=== PATIENT | female | born 1935 | race Caucasian/White ===

== ENCOUNTER 2018-06-22 22:02 | Inpatient (IN) | payer MEDICARE, OTHER ==
[~2018-06-22] VITALS: Ht 165.1 cm; Wt 89.8 kg
[~2018-06-22 22:02] MED LIST: ATENOLOL50 MG PO; EVISTA60 MG PO; MONUROL3 GM PO; MULTIVITAMINS1 EAC6; PLAVIX75 MG PO; PRILOSEC20 MG; RESTORIL15 MG PO; SYNTHROID125 MCG PO; TRIAMTERENE-HCTZ1 EA PO; ULTRAM50 MG PO
--- OUTSIDE RECORDS SUMMARY | 2018-06-22 22:04 | XMS REPORT | Clinical Summary ---
Author Author CARLA [facility] Address Unknown Phone Unavailable Care Team Providers Care Lab Support Technician Name Role Phone Eder Tian MD PCP Allergies Comments Active Allergy Reactions Severity Noted Date Meperidine Nausea And Medium 12/24/2015 Vomiting Penicillins Rash Low 12/24/2015 Medications End Date Status Medication Sig Dispensed Refills Start Date Active omeprazole (PRILOSEC) 20 Take 20 mg by 0 MG capsule mouth daily. Active levothyroxine (SYNTHROID, Take 125 mcg 0 LEVOTHROID) 125 MCG by mouth tablet Every morning on an empty stomach. Active Missing or Non-Formulary 1 tablet 0 Medication daily Maxide 75/50 mg . Active raloxifene (EVISTA) 60 mg Take 60 mg by 0 tablet mouth daily. Active aspirin 81 MG EC tablet Take 81 mg by 0 mouth daily. Active multivitamin with Take 1 tablet 0 minerals tablet by mouth daily. Active calcium carbonate 1250 MG Take 1,250 mg 0 capsule by mouth 2 (two) times daily with breakfast and dinner . Active temazepam (RESTORIL) 15 Take 15 mg by 0 mg capsule mouth 2-3 times per week . Active traMADol (ULTRAM) 50 mg Take 50 mg by 0 tablet mouth once in evening Seldom . Active Problems Problem Noted Date RBBB 12/31/2015 Severe aortic stenosis 12/25/2015 Coronary artery disease involving [place] coronary artery of [place] heart 12/25/2015 without angina pectoris Obesity (BMI 30.0-34.9) 12/25/2015 GERD (gastroesophageal reflux disease) 12/25/2015 Hypothyroid 12/25/2015 Chronic diastolic CHF (congestive heart failure) 12/25/2015 Immunizations Name Dates Previously Given Next Due Pneumococcal 01/02/2016 Polysaccharide (Pneumovax) Family History Medical History Relation Name Comments Cancer Father Heart disease Mother Cancer Sister Atrial fibrillation Sister Valvular heart disease Sister Relation Name Status Comments Father Mother Sister Sister Social History Date Tobacco Use Types Packs/Day Years Used Never Smoker Smokeless Tobacco: Never Used Alcohol Use Drinks/Week oz/Week Comments No Sex Assigned at Date Recorded Not on file Industry Job Start Date Occupation Not on file Not on file Not on file Travel End Travel History Travel Start No recent travel history available. Last Filed Vital Signs Not on file Plan of Treatment Health Maintenance Due Date Last Done Comments INFLUENZA VACCINE 01/03/2018 Implants Device Identifier Shelf Expiration Date Model / Serial / Lot Implanted Type Area Manufactur er 10/06/2016 [id number] / [id number] / Tiss Live Vlv Hrt Tammi 23mm Valves N/A: Aorta CARMEN [id number] - [id number] LIFESCI Implanted: Qty: 1 on 01/01/2016 by Tulio Garcia MD Results Not on fileafter 06/21/2017 Insurance Payer Benefit Subscriber ID Type Phone Address Plan / Group MEDICARE MEDICARE A xxxxxxxxxx Medicare B AETNA - MGD CARE AETNA HMO xxxxxxxxxx HMO/POS POS QPOS Advance Directives For more information, please contact: [facility] [address] [place] [id number] Date Inactivated Comments Code Status Date Activated 01/02/2016 7:22 PM Full Code 01/01/2016 9:39 AM This code status was determined by: Patient
--- OUTSIDE RECORDS SUMMARY | 2018-06-22 22:04 | XMS REPORT ---
Author Author [facility] Address Unknown Phone Unavailable Care Team Providers Care Manager Environmental Health And Safety Name Role Phone Unavailable Unavailable Payers Payer Name Policy Type Policy Number Effective Date Expiration Date Problems This patient has no known problems. Allergies, Adverse Reactions, Alerts Allergy Name Allergy Type Status Severity Reaction(s) Onset Date Inactive Date Treating Clinician Comments meperidine HCl DA Active SV 2018-06-08 00:00:00 Penicillins DA Active MO 2018-06-08 00:00:00 nitrofurantoin DA Active MO 2018-06-08 00:00:00 meperidine HCl DA Active SV 2017-08-06 00:00:00 Penicillins DA Active MO 2017-08-06 00:00:00 nitrofurantoin DA Active MO 2017-08-06 00:00:00 Medications This patient has no known medications.
[2018-06-22 23:12] LABS: BASOPHILS % 0.1 % (0.0-1.0); LYMPHOCYTES # (AUTO) 1.2 (1.0-3.2); LYMPHOCYTES % 4.3 % (18.0-39.1); MEAN CORPUSCULAR HEMOGLOBIN 28.4 pg (28-32); MEAN CORPUSCULAR HGB CONC 32.8 g/dL (31-35); MEAN CORPUSCULAR VOLUME 86.5 fL (81-99); MONOCYTES # (AUTO) 1.9 (0.2-0.8); MONOCYTES % 6.8 % (4.4-11.3); NEUTROPHILS # (AUTO) 24.2 (2.1-6.9); NEUTROPHILS % 85.7 % (38.7-80.0); PLATELET COUNT 322 x10e3/uL (140-360); RED BLOOD COUNT 2.29 x10e6/uL (3.6-5.1); RED CELL DISTRIBUTION WIDTH 13.9 % (11.7-14.4)
[2018-06-22 23:22] LABS: HEMATOCRIT 19.8 % (34.2-44.1); HEMOGLOBIN 6.5 g/dL (12.0-16.0)
[2018-06-22 23:27] LABS: ALBUMIN 2.7 g/dL (3.5-5.0); CALCIUM 8.8 mg/dL (8.4-10.2); CREATININE, SERUM 1.85 mg/dL (0.57-1.11)
[2018-06-22 23:33] LABS: CREATINE KINASE MB 3.5 ng/mL (0-5.0)
--- NOTE | 2018-06-22 23:33 | Diagnostic Imaging Report ---
Examination: Single AP view of the chest. COMPARISON: None. INDICATION: Status post fall, weakness IMPRESSION: 1. Lines and Tubes: None 2. Lungs are grossly clear. No consolidation or effusion. 3. Cardiomediastinal silhouette is normal. Pulmonary vasculature is normal. 4. No acute bony abnormalities. Partially visualized hardware in the right humeral head. Signed by: Dr. Jt Mckeon M.D. on 06/22/2018 11:30 PM
[2018-06-22] MEDS ORDERED: ACETAMINOPHEN 325 MG TAB PO STA (23:36)
--- NOTE | 2018-06-22 23:36 | Diagnostic Imaging Report ---
EXAMINATION: Bilateral Hip Films with AP pelvis CLINICAL HISTORY:Status post fall, weakness COMPARISON: None. DISCUSSION: Decreased bone mineralization, which limits evaluation of the bony structures. No acute, displaced fractures or dislocations. No lytic or blastic lesions. Mild degenerative changes in bilateral hip joints. Degenerative disc changes in the lower lumbosacral spine. Nonobstructive bowel gas pattern with moderate amount of retained stool. Calcified injection granuloma in right gluteal region. Pelvic phleboliths. Soft tissues are grossly unremarkable. IMPRESSION: 1. Decreased bone mineralization, which limits evaluation of the bony structures. No acute, displaced fracture or dislocation, within the limitations of the study. Signed by: Dr. Jt Mckeon M.D. on 06/22/2018 11:33 PM
[2018-06-22] MEDS ORDERED: FUROSEMIDE INJ 10 MG/ML 2 ML VIAL IV PRN (23:45)
[2018-06-22] MEDS ORDERED: SODIUM CHLORIDE 0.9% 250ML 250 ML IV ONE (23:45)
[2018-06-22] MEDS ORDERED: FAMOTIDINE 20 MG/2 ML VIAL IV ONE (23:45)
[2018-06-22] MEDS ORDERED: DIPHENHYDRAMINE HCL INJ 50 MG/ML VIAL IV ONE (23:45)
[2018-06-22] MEDS ORDERED: DEXAMETHASONE SOD PHOS 10 MG/1 ML VIAL IV ONE (23:45)
[2018-06-22] MEDS ORDERED: PHYTONADIONE 10 MG/ML AMP IV ONE (23:45)
--- NOTE | 2018-06-22 23:49 | Diagnostic Imaging Report ---
Exam: Right Knee Series. History: Status post fall, right knee pain and swelling Comparison: None. Findings: 3 views of the right knee. There is decreased bone mineralization, which limits evaluation of the bony structure. . Post right total knee replacement with intact femoral and tibial components, without evidence of hardware failure or loosening. Satisfactory alignment. No acute, displaced fracture or dislocation. No abnormal soft tissue calcification or mass. No suprapatellar effusion. Impression: 1. Decreased mineralization, which limits evaluation of the bony structures. Status post right total knee replacement with intact hardware. No acute, displaced fracture or dislocation. Signed by: Dr. Jt Mckeon M.D. on 06/22/2018 11:46 PM
[2018-06-23] VITALS (20 sets, daily range): BP systolic 85–145; BP diastolic 31–107
[2018-06-23 01:35] LABS: PROTHROMBIN TIME > 120.0 seconds (11.9-14.5)
[2018-06-23 01:36] LABS: INR > 5.1
[2018-06-23] MEDS ORDERED: DIATRIZOATE MEGL/DIATRIZOA SOD 30 ML BTL PO ONE (02:51)
[2018-06-23] MEDS ORDERED: CEFEPIME 1GM/NS 0.9% 50 ML 50 ML IV ONE (03:15)
[2018-06-23] MEDS ORDERED: VANCOMYCIN 1GM/NS 250 ML 250 ML IV ONE (03:15)
[2018-06-23] MEDS ORDERED: METOPROLOL SUCC25 MG PO (03:20)
[2018-06-23] MEDS ORDERED: POTASSIUM CHLOR8 ME1 PO (03:20)
[2018-06-23] MEDS ORDERED: PREDNISONE20 MG PO (03:20)
[2018-06-23] MEDS ORDERED: WARFARIN SODIUM5 MG PO (03:20)
[2018-06-23] MEDS ORDERED: CEPHALEXIN500 MG PO (03:20)
[2018-06-23] MEDS ORDERED: MELOXICAM7.5 MG PO (03:20)
[2018-06-23] MEDS ORDERED: MONTELUKAST SOD10 MG PO (03:20)
[2018-06-23] MEDS ORDERED: SULFAMETHOXAZO1 EAC1 PO (03:20)
[2018-06-23 03:43] LABS: BILIRUBIN,URINE NEGATIVE (NEGATIVE); CLARITY,URINE SL CLOUDY (CLEAR); COLOR,URINE YELLOW (YELLOW); KETONES,URINE NEGATIVE (NEGATIVE); LEUKOCYTE ESTERASE ,URINE NEGATIVE (NEGATIVE); NITRITE,URINE NEGATIVE (NEGATIVE); PROTEIN,URINE DIPSTICK NEGATIVE (NEGATIVE); URINE UROBILINOGEN 0.2 mg/dL (0.2 - 1)
[2018-06-23 03:52] LABS: BACTERIA,URINE FEW /HPF; EPITHELIAL CELLS,URINE MODERATE /LPF; RBC,URINE 0-5 /HPF (0-5); WBC,URINE (MAN) 0-5 /HPF (0-5)
[2018-06-23] MEDS ORDERED: SODIUM CHLORIDE 0.9% 250ML 250 ML ONE ×2 (04:03→21:17)
[2018-06-23 05:04] LABS: EOSINOPHILS % 0.1 % (0.0-6.0); LYMPHOCYTES # (AUTO) 0.9 (1.0-3.2); LYMPHOCYTES % 3.9 % (18.0-39.1); MEAN CORPUSCULAR HEMOGLOBIN 27.5 pg (28-32); MEAN CORPUSCULAR HGB CONC 31.8 g/dL (31-35); MEAN CORPUSCULAR VOLUME 86.3 fL (81-99); MONOCYTES % 4.4 % (4.4-11.3); NEUTROPHILS # (AUTO) 19.3 (2.1-6.9); NEUTROPHILS % 89.5 % (38.7-80.0); PLATELET COUNT 240 x10e3/uL (140-360); RED BLOOD COUNT 1.82 x10e6/uL (3.6-5.1); RED CELL DISTRIBUTION WIDTH 13.8 % (11.7-14.4)
--- OUTSIDE RECORDS SUMMARY | 2018-06-23 05:10 | XMS REPORT | Clinical Summary ---
Author Author CARLA [facility] Address Unknown Phone Unavailable Care Team Providers Care Research Environmental Scientist Name Role Phone Eder Tian MD PCP [...] aortic stenosis 12/25/2015 Coronary artery disease involving [place] coronary artery of [place] heart 12/25/2015 without angina pectoris Obesity (BMI [...] Lot Implanted Type Area Manufactur er 10/06/2016 [id number] / [id number] / Tiss Live Vlv Hrt Tammi 23mm Valves N/A: Aorta CARMEN [id number] - [id number] LIFESCI Implanted: Qty: 1 on 01/01/2016 by Tulio Garcia MD Results Not on fileafter 06/22/2017 Insurance Payer Benefit Subscriber ID Type Phone Address Plan / Group MEDICARE MEDICARE A xxxxxxxxxx Medicare B AETNA - [place]GD CARE AETNA HMO xxxxxxxxxx HMO/POS POS QPOS Advance Directives For more information, please contact: [facility] [address] [place] [id number] Date Inactivated Comments Code Status Date Activated 01/02/2016 7:22 PM Full Code 01/01/2016 9:39 AM This code status was determined by: Patient
[2018-06-23 05:17] LABS: INR 1.93; PROTHROMBIN TIME 22.7 seconds (11.9-14.5)
--- NOTE | 2018-06-23 05:20 | NUR ---
patient arrived to icu at 0517, head to toe assesment done, see full initial assesment. patient has critical hgb and pale looking. however, does not appear in distress.
[2018-06-23 05:26] LABS: HEMATOCRIT 15.7 % (34.2-44.1)
[2018-06-23 05:29] LABS: CREATINE KINASE MB 2.7 ng/mL (0-5.0)
--- NOTE | 2018-06-23 05:42 | Diagnostic Imaging Report ---
History:Weakness Comparison studies: None Technique: Axial images were obtained from the skull base to the vertex. Coronal and sagittal images reconstructed from the axial data. Dose modulation, iterative reconstruction, and/or weight based adjustment of the mA/kV was utilized to reduce the radiation dose to as low as reasonably achievable. Intravenous contrast: None Findings: Scalp/skull: No abnormalities. Extra-axial spaces: No masses. No fluid collections. Brain sulci: Mildly prominent. Ventricles: Mild compensatory dilatation. No hydrocephalus. Parenchyma: No abnormal densities. No masses, hemorrhage, acute or chronic cortical vascular insults. Sellar/suprasellar region: No abnormalities. Craniocervical junction: Patent foramen magnum. No Chiari one malformation. Incidental findings: Atherosclerotic calcifications in the carotid siphons and left vertebral artery. Senile calcifications in the globes. Focal mucosal thickening in the right maxillary sinus.. Impression: No acute abnormalities. Mild age related generalized volume loss. Signed by: Dr. Emmanuel Beasley M.D. on 06/23/2018 5:39 AM
--- NOTE | 2018-06-23 05:48 | Diagnostic Imaging Report ---
EXAMINATION: CT of the abdomen and pelvis without contrast. TECHNIQUE: Spiral CT images of the abdomen and pelvis were performed from the lung bases to the lesser trochanters. No intravenous contrast was given due to decreased GFR. Oral contrast was administered.. Coronal and sagittal reformatted images were obtained. COMPARISON: None. CLINICAL HISTORY:Weakness, status post fall 3-4 days ago DISCUSSION: ABSENCE OF INTRAVENOUS CONTRAST DECREASES SENSITIVITY FOR DETECTION OF FOCAL LESIONS AND VASCULAR PATHOLOGY. ABDOMEN/PELVIS: LOWER THORAX: Small to moderate hiatal hernia. Lung bases are grossly clear. HEPATOBILIARY: No focal hepatic lesions. No intra or extrahepatic biliary ductal dilation. GALLBLADDER: Absent SPLEEN: No splenomegaly. PANCREAS: No focal masses or ductal dilatation. ADRENALS: No adrenal nodules. KIDNEYS/URETERS: No hydronephrosis, stones, or solid mass lesions. Bilateral cortical thinning. 1.6 cm fluid density lesion in the lateral interpolar left kidney, consistent with a simple cyst. PELVIC ORGANS/BLADDER: Bladder is unremarkable. The uterus is absent. No adnexal masses. PERITONEUM/RETROPERITONEUM: No free air or fluid. No fluid collections. LYMPH NODES: No intra-abdominal,retroperitoneal, pelvic or inguinal lymphadenopathy. VESSELS: Atherosclerotic calcification of the abdominal aorta and iliac vessels. GI TRACT: No bowel dilation or evidence of obstruction. No pericolonic inflammatory changes. Distal descending and sigmoid colon diverticulosis, without diverticulitis. BONES AND SOFT TISSUES: Generalized osteopenia. Multilevel degenerative disc changes in the lower thoracic and lumbosacral spine. Mild grade 1 anterolisthesis of L4 on L5. Facet hypertrophy L4-L5 and L5-S1. No acute, displaced fracture or dislocation. Subcutaneous fat stranding in the right gluteal region, which may reflect a contusion in the setting of trauma. IMPRESSION: 1. No evidence of bony or solid organ injury. 2.Subcutaneous fat stranding in the right gluteal region, which may reflect a contusion in the setting of trauma. No fluid collections in the visualized portions. Signed by: Dr. Jt Mckeon M.D. on 06/23/2018 5:45 AM
--- NOTE | 2018-06-23 05:48 | Diagnostic Imaging Report ---
History: fall Comparison studies: None Technique: Axial images were obtained through the cervical region.. Coronal and sagittal images reconstructed from the axial data. Dose modulation, iterative reconstruction, and/or weight based adjustment of the mA/kV was utilized to reduce the radiation dose to as low as reasonably achievable. Intravenous contrast: None Findings: Fractures: None. Soft tissues: No gross abnormalities. Atlantoaxial articulation: Mild degenerative changes Alignment: Slight reversal of the usual lordosis centered at C4-5.. 2 mm degenerative anterolisthesis of C3 on C4 and C4 on C5. Mild curvature towards the left. Cervicomedullary junction: No abnormalities. The foramen magnum is patent. Vertebrae: Mildly demineralized. No infection or neoplasm. Degenerative changes: Mildly degenerated discs from C3 to C5, moderate from C5 through T1. Moderate facet arthrosis on the right from C2 through C7 Foraminal stenosis, mild right at C2-3, moderate right at C3-4 and C5-6, mild at C7-T1 due to facet and uncovertebral arthrosis. Patent spinal canal. IMPRESSION: 1. No acute abnormalities. 2. Cannot adequately evaluate for ligament, spinal cord and or vascular abnormalities. 3. Degenerative changes as described Signed by: Dr. Emmanuel Beasley M.D. on 06/23/2018 5:45 AM
--- NOTE | 2018-06-23 05:58 | Diagnostic Imaging Report ---
EXAMINATION: CT of right lower extremity, without contrast. TECHNIQUE: Axial spiral CT images of the right lower extremity were performed from the hip to the proximal tibia. No intravenous contrast was administered. Coronal and sagittal reformatted images in bone and soft tissue windows were obtained. CLINICAL HISTORY: Status post fall, suspected hematoma COMPARISON: None. FINDINGS: Exam limited by beam hardening artifact from total right knee prosthesis. No acute, displaced fracture or dislocation. No lytic or blastic lesions. Status post right total hip knee replacement, with femoral and tibial components in satisfactory position. Hardware is intact. Mild degenerative changes right hip joint. Subcutaneous soft tissue stranding extending from the right gluteal region along the lateral aspect of the thigh to just the level of the mid femur (for example series 2, image 21). Mild subcutaneous stranding is also noted in the posterior aspect of the thigh (for example series 2, image 69). An approximately 2.8 x 1.1 cm area of subcutaneous tissue anterior to the joint space with overlying skin thickening (series 2, image 99) has a measured density of 40-45 HU and may represent a small hematoma. No well-defined fluid collections. Atherosclerotic calcification of the femoral and popliteal arteries. IMPRESSION: 1. 2.8 cm area of subcutaneous tissue anterior to the knee joint space with overlying skin thickening and mild hyperdensity may represent a small subcutaneous hematoma. No well-defined fluid collections. 2. No acute, displaced fracture or dislocation. 3. Subcutaneous soft tissue stranding from the right gluteal region to the the lateral aspect of the right thigh likely reflects a contusion. Signed by: Dr. Jt Mckeon M.D. on 06/23/2018 5:55 AM
[2018-06-23] MEDS ORDERED: PHYTONADIONE 10 MG/ML AMP SQ ONE (06:00)
[2018-06-23] MEDS ORDERED: SODIUM CHLORIDE 0.9% 250ML 250 ML IV ONE (06:00)
[2018-06-23 06:17] LABS: ANION GAP 13.1 mmol/L (8-16); CALCIUM 8.8 mg/dL (8.4-10.2); CREATININE, SERUM 1.8 mg/dL (0.57-1.11); POTASSIUM 4.1 mmol/L (3.5-5.1)
[2018-06-23] MEDS ORDERED: FUROSEMIDE INJ 10 MG/ML 4 ML VIAL ONE (06:58)
--- NOTE | 2018-06-23 07:06 | NUR ---
report given in full to adrienne browning, blood prbc second unit is infusing now
[2018-06-23] MEDS ORDERED: FAMOTIDINE 20 MG/2 ML VIAL IV PRN ×2 (07:15→11:00)
[2018-06-23] MEDS ORDERED: DEXAMETHASONE SOD PHOS 10 MG/1 ML VIAL IV PRN ×2 (07:15→11:00)
[2018-06-23] MEDS ORDERED: DIPHENHYDRAMINE HCL INJ 50 MG/ML VIAL IV PRN ×2 (07:15→11:00)
[2018-06-23] MEDS ORDERED: ACETAMINOPHEN 325 MG TAB PO PRN (07:30)
--- NOTE | 2018-06-23 07:52 | NUR ---
Consult called to Dr Del Rio. Consult called to Dr Luz Elena Hernandez.
--- NOTE | 2018-06-23 08:00 | NUR ---
Consult called to Dr Boyd.
[2018-06-23 08:01] LABS: LYMPHOCYTES % (MANUAL) 2 % (19-48); METAMYELOCYTES % (MANUAL) 2 % (0-0); MONOCYTES % (MANUAL) 4 % (3.4-9.0); MYELOCYTES % (MANUAL) 1 % (0-0); NEUTROPHILS % (MANUAL) 91 % (40-74)
[2018-06-23 08:02] LABS: ANISOCYTOSIS SLIGHT; HYPOCHROMASIA MARKED; PLATELET ESTIMATE ADEQUATE; PLATELET MORPHOLOGY COMMENT NORMAL; RBC MORPHOLOGY COMMENT NORMAL
--- NOTE | 2018-06-23 09:47 | Diagnostic Imaging Report ---
Examination: Single AP view of the chest. COMPARISON: 06/22/2018 INDICATION: Central line placement DISCUSSION: Interval placement of a right internal jugular central venous catheter. The tip projects over the low superior vena cava. Lungs remain well-inflated and without consolidation, pleural effusion, or pneumothorax. Stable cardiomediastinal contour. Aortic valve prosthesis. No acute osseous abnormality. Bilateral proximal humeral surgical hardware. IMPRESSION: Right internal jugular central venous catheter tip lies in the low superior vena cava. No pneumothorax. Signed by: Dr. Darnell Duke M.D. on 06/23/2018 9:43 AM
--- NOTE | 2018-06-23 10:03 | Diagnostic Imaging Report ---
Date and Time: 06/23/2018 Procedure: Ultrasound-guided central venous catheter placement wrapper operator: Dr. Duke Pre-operative diagnosis: Sepsis, anemia Post-operative diagnosis: Sepsis, anemia Conscious Sedation: None Additional Medications: Lidocaine 1% for local anesthesia Estimated blood loss: Minimal Blood products administered: Packed red blood cell transfusion ongoing per ICU team. Specimens: None Implants: 7 [place] 16 cm triple-lumen central venous catheter. Condition at completion: Stable Disposition: ICU DISCUSSION: Informed consent was obtained and documented in the medical record after discussion of risks and benefits. The patient was placed in the supine position on the hospital bed. Preliminary sonographic evaluation confirmed patency of the right internal jugular vein, evidenced by compressibility. The right neck was prepped and draped in the standard sterile fashion. 1% lidocaine was infiltrated into the skin and subcutaneous tissues for local anesthesia. Then under continuous sonographic guidance, an 18-gauge singlewall needle was used to access the right internal jugular vein. A permanent sonographic image was stored in the medical record. A 0.0 3 5-in. wire was advanced centrally with continuous cardiac rhythm monitoring. The needle was removed over the wire and the tract was dilated. Then a 7 [place], 16 cm triple-lumen central venous catheter was advanced over the wire to a depth of 15 cm. The wire was removed. Each lumen showed adequate bidirectional flow and was flushed with sterile saline. The catheter was secured to the skin with monofilament nylon suture and a sterile dressing was applied. The patient tolerated the procedure well without immediate complication. FINDINGS: Patent right internal jugular vein. IMPRESSION: Successful placement of a right internal jugular central venous catheter under sonographic guidance, without immediate complication. Portable chest radiograph will be obtained to confirm line positioning prior to use. Signed by: Dr. Darnell Duke M.D. on 06/23/2018 10:00 AM
--- NOTE | 2018-06-23 10:03 | Diagnostic Imaging Report ---
Date and Time: 06/23/2018 Procedure: Ultrasound-guided central venous catheter placement projector operator: Dr. Duke Pre-operative diagnosis: Sepsis, anemia Post-operative diagnosis: Sepsis, anemia Conscious Sedation: None Additional Medications: Lidocaine 1% for local anesthesia Estimated blood loss: Minimal Blood products administered: Packed red blood cell transfusion ongoing per ICU team. Specimens: None Implants: 7 [place] 16 cm triple-lumen central venous catheter. Condition at completion: Stable Disposition: ICU DISCUSSION: Informed consent was obtained and documented in the medical record after discussion of risks and benefits. The patient was placed in the supine position on the hospital bed. Preliminary sonographic evaluation confirmed patency of the right internal jugular vein, evidenced by compressibility. The right neck was prepped and draped in the standard sterile fashion. 1% lidocaine was infiltrated into the skin and subcutaneous tissues for local anesthesia. Then under continuous sonographic guidance, an 18-gauge singlewall needle was used to access the right internal jugular vein. A permanent sonographic image was stored in the medical record. A 0.0 3 5-in. wire was advanced centrally with continuous cardiac rhythm monitoring. The needle was removed over the wire and the tract was dilated. Then a 7 [place], 16 cm triple-lumen central venous catheter was advanced over the wire to a depth of 15 cm. The wire was removed. Each lumen showed adequate bidirectional flow and was flushed with sterile saline. The catheter was secured to the skin with monofilament nylon suture and a sterile dressing was applied. The patient tolerated the procedure well without immediate complication. FINDINGS: Patent right internal jugular vein. IMPRESSION: Successful placement of a right internal jugular central venous catheter under sonographic guidance, without immediate complication. Portable chest radiograph will be obtained to confirm line positioning prior to use. Signed by: Dr. Darnell Duke M.D. on 06/23/2018 10:00 AM
--- NOTE | 2018-06-23 10:26 | History and Physical ---
REASON FOR ADMISSION: The patient comes here feeling weak and tired. HISTORY OF PRESENTING ILLNESS: Ms. Miguelina Clinton, who recently came to the office with upper respiratory symptoms, was given Keflex 500 mg twice a day, was in her usual state of health until yesterday, the patient started to have feeling of weakness and also the patient noted that her area of left knee started to have increased erythema and bleeding on the knee, and the patient came into the emergency room feeling weak, was found to have anemia and warfarin toxicity. The patient is admitted for anemia, septicemia, warfarin toxicity. PAST MEDICAL HISTORY: History of hypertension, history of hyperlipidemia, history of atrial fibrillation which was recently diagnosed and was started on warfarin about one month ago by . PAST SURGICAL HISTORY: Includes history of left and right rotator cuff surgery, right knee replacement, cholecystectomy, and hysterectomy. MEDICATIONS: Includes cephalexin 500 mg, meloxicam 7.5 mg daily, metoprolol 25 mg ER, montelukast 10 mg, potassium chloride 80 mEq, prednisone 10 mg twice a day, sulfamethoxazole, which has been stopped, temazepam, Dyazide, and warfarin 5 mg. REVIEW OF SYSTEMS: Negative for chest pain. Positive for short shortness of breath. No nausea, vomiting, or diarrhea. Positive for fatigue. Positive for increased pain and tenderness status post fall and also history of ecchymosis on the knee and also on the upper chin area status post fall. PHYSICAL EXAMINATION: VITAL SIGNS: Temperature is 98.6. Initially, when she came in, her pulse was 120 with a blood pressure of 121/84, it did go down to 89/61. SKIN: The patient does have small ecchymosis in the chest wall area and also below the neck area. CVS: S1, S2, irregular. ABDOMEN: Nontender and nondistended. EXTREMITIES: Positive for erythema, tenderness and also swelling in the knee area. Surgical scar for the knee is present. LABORATORY VALUES: White count was 28,000 when she came in; hemoglobin was 6.5 and hematocrit of 19.8, dropped to 5.0 and 15.7; neutrophil count was 85.7 and right now is 89.5. Coags; INR is above 5, PT at 120, repeat after 2 FFPs is 22.7 and INR of 1.93. Urine shows moderate epithelial cells, negative leukocyte esterase, and negative nitrites. IMAGING STUDIES: Knee x-ray shows decreased mineralization, no acute displaced fracture or dislocation. Hip x-ray shows decreased bone mineralization, no fractures also. Brain CT was done to rule out any bleeds, no acute abnormalities, and age-related changes seen. Abdominal CT shows no evidence of bony or solid organ injury, subcutaneous fat stranding in the right gluteal area, which may reflect contusion in setting of trauma. Lower extremity CT shows 2.8 cm area of subcutaneous tissue anterior to knee space, subcutaneous soft tissue stranding again noted in the gluteal area. Cervical spine shows no acute abnormalities. ASSESSMENT: 1. Coumadin toxicity. 2. Shock secondary to probable volume status and also possibly from septicemia. PLAN: Plan is to reverse her INR with vitamin K and also with FFPs, which has been done. The patient's blood pressure is very labile at this point in time with the blood pressure dropping, we will go ahead and put a central line to assess volume status and also to replete volume if needed immediately. One unit of PRBC has been transfused, 2 units of FFP have been transfused, we have 2 more units on hold to be transfused to bring up volume. Consult with Dr. Boyd has been done. Consult with Dr. Del Rio is done for septicemia and also with Dr. Hernandez in case a DIAMOND is required for further evaluation of septicemia. At this time, the patient is looking stable, but we will continue with central line just in case we need it. Antibiotics have been started. White count has dropped. The patient will be kept in the ICU for close monitoring. Further recommendation and clinical course, we will continue to monitor the patient along with consultants. MD MELINA BiswasJ/MODL /[id number]
[2018-06-23] MEDS ORDERED: FUROSEMIDE INJ 10 MG/ML 2 ML VIAL IV PRN (11:00)
[2018-06-23 14:10] LABS: HEMATOCRIT 29.9 % (34.2-44.1); HEMOGLOBIN 10.3 g/dL (12.0-16.0)
--- NOTE | 2018-06-23 17:53 | Consultation ---
DATE OF CONSULTATION: 06/23/2018 Cardiac Consultation REASON FOR CONSULTATION: Atrial fibrillation, TAVR, hypotension, shock status, severe anemia, hypercoagulability, and warfarin toxicity. HISTORY: An 83-year-old lady, who is known with longstanding history of hypertension, aortic stenosis, hypothyroidism, and elevated fasting blood sugar. Her other problem is repeated urinary tract infection. Despite the patient having bladder suspension surgery, she does have frequent UTIs. She has chronic renal insufficiency, which is mild to moderate. She is followed by Dr. Tian. Approximately two years ago, the patient had TAVR done in [facility]. She did well cardiac pelaez. Cardiac catheterization at that time showed no coronary artery disease. Months ago or more, she was diagnosed with atrial fibrillation by her passenger solicitor in [facility]. She was started on warfarin 5 mg a day. She also had recent upper respiratory tract infection and UTI. She was given prednisone and antibiotics. The patient was doing well; however, she usually walks with precaution, she does have tendency to fall. The patient felt dizzy, weak, she sustained a fall, and she was very weak. She was brought to this institution. Her hemoglobin was at 5, hematocrit at 15.7, BUN of 45, and creatinine of 1.8. She does have leukocytosis with white blood cell count of 21,000. She had several bruises. She was in atrial fibrillation. The patient was seen by Hematology. She was given fresh frozen plasma and blood product. Cardiac consultation was obtained. I visited the patient, who is very weak. She is feeling very debilitated. She is getting weaker and weaker until she passed out. She does have easy fatigability and shortness of breath on minimal activity. She does have postural hypotension like symptoms. She did not pass out, but she definitely sustained a fall. There is no syncope prior to this fall. There are no anginal symptoms. REVIEW OF SYSTEMS: GENERAL: Weakness, debility, and failure to thrive. HEENT: Blurry vision. PULMONARY AND CARDIAC: As per acute illness, mainly shortness of breath on exertion and easy fatigability, etc., as described above. GI: No hematemesis. No melena. : Increased frequency of urination, repeated urinary tract infection. She did not have any hematuria. NEUROLOGIC: No localized weakness. However, she is very weak. HEMATOLOGY: Easy bruising and bleeding. ENDOCRINE: "Elevated fasting blood sugar, but no diabetes." MUSCULOSKELETAL: Aches and pains, back pain with radiculopathy and tendency to fall. PSYCHIATRIC: No depression symptoms. Other review of systems unremarkable. HOME MEDICATIONS: Include all the following: Toprol XL 25 mg a day, Dyazide 37.5/25 mg one tablet a day, potassium chloride 80 mEq a day, Singulair 10 mg a day, meloxicam 15 mg a day, warfarin 5 mg a day, fosfomycin 3 mg, prednisone, and antibiotics. ALLERGIES: MEPERIDINE, NITROFURANTOIN, AND PENICILLIN. PAST MEDICAL HISTORY: 1. TAVR in 2016. 2. Atrial fibrillation, diagnosed recently in 2019. 3. Hypertension. 4. Hypothyroidism. 5. Elevated fasting blood sugar. 6. Tendency to fall. 7. Back pain with radiculopathy. 8. Cholecystectomy. 9. Hysterectomy. 10. Appendectomy. 11. Bladder suspension surgery. 12. Several shoulder surgeries. FAMILY HISTORY: Father of lung cancer, mother of heart failure, at least one sister of liver cancer. PHYSICAL EXAMINATION: GENERAL: Elderly lady, ill, weak. VITAL SIGNS: Height of 5 feet 5 inches, weight of 193 pounds. Blood pressure 95/50, heart rate of 80 and irregularly irregular of atrial fibrillation, respiratory rate of 20, and afebrile. HEENT: Pupils are reactive. NECK: No elevation of jugular venous pulsation. No thyromegaly. CHEST: Decreased air entry with basal crackles. HEART: PMI in fifth left intercoastal space. Normal first and second heart sounds. Irregularly irregular rate of atrial fibrillation with soft ejection systolic murmur. ABDOMEN: No organomegaly. No abdominal bruises are noted. EXTREMITIES: There is big bruise over the right thigh and right hip area. Mild peripheral edema. Few bruises noted all over her body. LABORATORY DATA: Sodium of 124, potassium of 4.1, BUN of 45, creatinine of 1.8, and bicarb of 24. White blood cell count of 21.6, hemoglobin of 5, hematocrit of 15.7. INR on admission is greater than 5.1, PT greater than 120 seconds. Today, INR is 1.93. EKG showing atrial fibrillation with right bundle-branch block, nonspecific ST-T changes. IMPRESSION AND PLAN: 1. Warfarin toxicity. 2. Severe anemia and blood loss. 3. Transcatheter aortic valve replacement. 4. Atrial fibrillation. 5. Repeated urinary tract infection. 6. Back pain with radiculopathy. 7. "Arthritis.". 8. Debility. Cardiac pelaez, recommendation is to use a small patch of beta-luca with precaution, to keep her heart rate between 80 to 100. Anticoagulation is handled by Hematology Service. Blood products are given. The patient is acutely ill. We will follow this very sick patient with you. Case discussed with the patient's and daughter who are at bedside. Their questions are answered. Lengthy visit in ICU for more than 60 minutes. MD ESTHER Dia/MODL /[id number]
[2018-06-23] MEDS ORDERED: CEFTRIAXONE SOD 1 GM/NS 50 ML 50 ML IV SCH (18:00)
--- NOTE | 2018-06-23 18:35 | NUR ---
Patient remains free of acute distress after TOTAL of 4 units PRBCs and 2 units FFP. H& H and VS stable.
--- NOTE | 2018-06-23 21:03 | Progress Note ---
DATE: CONTINUATION: REASON FOR CONSULTATION: Sepsis with leukocytosis and elevated lactic acid. She fell at the office as mentioned above with injuring her knee and body, but when she came to emergency room she was found to be anemic, but it was noted her white count was elevated, chest CAT scan, several x-rays. Her white count showed a WBC of 21. Currently, the patient is in intensive care unit, but she looks really good. REVIEW OF SYSTEMS: HEENT: Negative. PULMONARY: Negative. CARDIAC: Negative. GI: Negative. : Negative. IMPRESSION AND PLAN: 1. Leukocytosis with lactic acidosis. It could be sepsis. Source is unclear. It could be also just reactive. She will receive a dose of vancomycin and cefepime. I will continue with Rocephin 1 g daily. If her blood cultures come back negative and if she is clinically stable, can discontinue. Await blood cultures, urine cultures. Recheck CBC. Recheck chem panel. 2. Anemia. 3. Coumadin toxicity. 4. Status post trauma after a fall. 5. History of recent urinary tract infection, history of recent upper respiratory infection, but all seem to be stable now. We will follow. MD LISETH Hugo/MARGARITO /[id number]
[2018-06-23] MEDS: CEFTRIAXONE SOD 1 GM/NS 50 ML 50 ML IV SCH (21:10)
[2018-06-24] VITALS (16 sets, daily range): BP systolic 95–120; BP diastolic 49–76
--- NOTE | 2018-06-24 00:44 | Consultation ---
DATE OF CONSULTATION: REASON FOR CONSULTATION: Sepsis. HISTORY OF PRESENT ILLNESS: This patient who is an 83-year-old white female, comes into the hospital with shortness of breath. The patient was recently in presented with shortness of breath, upper respiratory infection symptoms. She was given Keflex 500 mg twice a day. The patient started to have weakness. She has erythema in the knee, came to the Emergency Room. She was found to have significant anemia with Coumadin toxicity. She was admitted with anemia, sepsis, and Coumadin toxicity. The patient has history of hypertension, hyperlipidemia, atrial fibrillation. She was recently diagnosed and started on Coumadin a month ago, now coming with redness and swelling in the knee. The patient has history of left and right rotator cuff surgery, right knee replacement, cholecystectomy, and hysterectomy. MEDICATIONS: Recently, she was on cephalexin 500 mg p.o. b.i.d., meloxicam, metoprolol, potassium chloride, prednisone 10 mg twice a day, sulfamethoxazole, and Coumadin. The patient comes in with shortness of breath. There is no nausea, no vomiting, no diarrhea, but she also was fatigued and tired. She has ecchymosis on her knee after a fall apparently with pain. PHYSICAL EXAMINATION: GENERAL: She is currently alert, comfortable. VITAL SIGNS: Stable, afebrile. HEENT: She is not icteric. NECK: Supple. CHEST: Clear. HEART: S1, S2. No S3, S4, murmur. ABDOMEN: Soft. Bowel sounds present. No tenderness. EXTREMITIES: No edema. IMAGING: Her CAT scan and x-ray were reviewed. IMPRESSION: 1. Coumadin toxicity with bruising. The patient received fresh frozen plasma, received blood. 2. Anemia from blood loss. 3. Sepsis with acidosis, although blood cultures and urine cultures. We will put on Rocephin 1 g daily. 4. She has CT of abdomen and pelvis, showed there is no evidence of solid organ injury. We will follow with you. Hematology/Oncology was followed, was asked to see the patient. MD LISETH Hugo/MARGARITO /[id number]
[2018-06-24 05:07] LABS: BASOPHILS % 0.2 % (0.0-1.0); EOSINOPHILS # (AUTO) 0.1 (0.0-0.4); EOSINOPHILS % 0.8 % (0.0-6.0); HEMATOCRIT 28.6 % (34.2-44.1); HEMOGLOBIN 9.7 g/dL (12.0-16.0); LYMPHOCYTES # (AUTO) 1.5 (1.0-3.2); LYMPHOCYTES % 10.3 % (18.0-39.1); MEAN CORPUSCULAR HEMOGLOBIN 28.9 pg (28-32); MEAN CORPUSCULAR HGB CONC 33.9 g/dL (31-35); MEAN CORPUSCULAR VOLUME 85.1 fL (81-99); MONOCYTES # (AUTO) 1.3 (0.2-0.8); MONOCYTES % 9.4 % (4.4-11.3); NEUTROPHILS # (AUTO) 11.1 (2.1-6.9); NEUTROPHILS % 77.8 % (38.7-80.0); PLATELET COUNT 181 x10e3/uL (140-360); RED BLOOD COUNT 3.36 x10e6/uL (3.6-5.1); RED CELL DISTRIBUTION WIDTH 14.6 % (11.7-14.4)
[2018-06-24 05:18] LABS: INR 1.59; PROTHROMBIN TIME 19.6 seconds (11.9-14.5)
[2018-06-24 05:28] LABS: ALBUMIN 2.8 g/dL (3.5-5.0); ALBUMIN/GLOBULIN RATIO 1.1 (0.8-2.0); ANION GAP 9.4 mmol/L (8-16); CALCIUM 8.7 mg/dL (8.4-10.2); CREATININE, SERUM 1.58 mg/dL (0.57-1.11); POTASSIUM 3.4 mmol/L (3.5-5.1)
[2018-06-24] MEDS ORDERED: POTASSIUM CHLORIDE 20 MEQ TAB CR PO STA (06:49)
[2018-06-24] MEDS ORDERED: GUAIFENESIN 600MG/DEXTROMETHORPHAN 30MG TABSR PO PRN (07:00)
[2018-06-24] MEDS ORDERED: ONDANSETRON HCL 4 MG ORAL DISINTEGRATING TAB PO PRN (07:00)
[2018-06-24] MEDS ORDERED: MAGNESIUM SULFATE 2GM/50ML 50 ML IV ONE (07:00)
--- NOTE | 2018-06-24 07:10 | NUR ---
Patient received awake, alert and Ox4. Respirations are even and unlabored and on room air and )2 sats are 98%. Denies any pain or discomfort. Has bruising to right knee and swelling +3 and +3 swelling to left leg also.
[2018-06-24] MEDS: BENZONATATE 100 MG CAP PO PRN ×2 (09:11→09:41)
--- NOTE | 2018-06-24 10:00 | Progress Note ---
DATE: SUBJECTIVE: This patient came into the hospital with acute Coumadin toxicity, hypertension secondary to bleed, shock secondary to sepsis, and also hypovolemic shock. The patient was started on vitamin K, FFPs were given and 4 units of PRBCs have been transfused. The patient is currently asymptomatic, in good spirits. The patient has a central line. No chest pain noted. No shortness of breath. No nausea, vomiting, or diarrhea. Feeling much better. OBJECTIVE: VITAL SIGNS: Temperature is 98.5, T-max is 99.1 at 2351, blood pressure is 113/69, pulse oximetry of 98, and the patient is on 2 L of O2. HEENT: Normocephalic and atraumatic. Central line is in place. CVS: S1 and S2, irregular. ABDOMEN: Nontender. Nondistended. EXTREMITIES: No clubbing. No cyanosis. Positive for edema on the knee, and also extensive hemarthrosis and extensive edema in the lower extremity. LABORATORY DATA: The patient's laboratory values, the patient's white count is 14,000, down from 28,000. Hemoglobin of 9.7, up from 6.5 and 5.0. The patient's hematocrit is normalized to 28.6, platelet count is 181, and left shift also has gone away. Chemistries show sodium of 135, potassium of 3.4, BUN of 41, creatinine of 1.58, and magnesium of 1.6. ASSESSMENT AND PLAN: 1. Sepsis secondary to bacteremia. The patient's microbiology cultures have grown no growth yet. 2. Hypovolemic shock. The patient has been transfused 4 units of PRBCs. 3. Acute blood loss anemia. Continue with monitoring her H and H. 4. Hypertension. Restart the blood pressure medicine as needed when the blood pressure is above 130s/90s. For right now, we will keep her off blood pressure medicines. 5. Atrial fibrillation with rapid ventricular response. We will hold off on any anticoagulation given her hemarthrosis at this time. 6. Replace lytes including potassium and magnesium. Zofran will be given as needed and Tylenol as needed for pain control and also for symptom relief. Further recommendation and clinical course, we also can start with physical therapy on the knee. We will continue to monitor the patient. The patient can again be moved out of ICU to [facility]. MD KRISTA Biswas/MARGARITO /[id number]
--- NOTE | 2018-06-24 10:30 | NUR ---
Physical Therapy here at bedside to ambulate patient with walker and patient ambulated down the ceballos with walker and tolerated well. She is now sitting in chair and tolerating well with family at bedside.
--- NOTE | 2018-06-24 11:30 | NUR ---
Report called to Manuel Chan and patient will be going to Room 298.
--- NOTE | 2018-06-24 12:00 | NUR ---
Patient transferred to Room 298 via her own bed. Magnesium Sulfate 2gm IV completed. Right IJ dressing changed prior to transfer and dated and initialed. Family aware patient will be moving to room 298. Telemetry Box #19 applied and reads [id number]. Patient denies any pain or discomfort and in good spirits.
--- NOTE | 2018-06-24 12:28 | NUR ---
PATIENT ARRIVED ON THE UNIT AT 1156 PER BED FROM THE ICU. PATIENT IS IN STALE CONDITION WITH NIO S/S OF RESPIRATORY DISTRESS. PATIENT DENIES ANY PAIN. PATIENT STATES LAST BM ON 06/22/18. TELEMETRY APPLIED. BEDSIDE COMMODE PROVIDED TO PATIENT. PATIENT AWARE OF NEED FOR STOOL SPECIMEN. BED ALARM ON. CALL LIGHT IS WITHIN REACH, PATIENT INSTRUCTED TO CALL FOR ASSISTANCE NEEDED.
--- NOTE | 2018-06-24 13:22 | NUR ---
PATIENT HAD A BOWEL MOVEMENT BUT SAMPLE WAS CONTAMINATED.
--- NOTE | 2018-06-24 18:24 | NUR ---
CASE MANAGEMENT INITIAL ASSESSMENT Cardiac Nurse to bedside to discuss plan of care with patient/family. CM/SW role and care transitions discussed. Anticipated discharge plan discussed along with duration of care. CM/SW discussed patients right to make decisions in care. CM/SW work hours given. Patient lives: WITH Admit/Transfer: ER Hospital/ER visits since last admit:0 POA/Emergency contact: CHARISSE CALDWELL, , Current/Previous Home Health: REFUSES PCP/Follow-up Care: DR RUDDY IZQUIERDO Current/Previous DME: WALKER Medications (referring to index hospitalization or the first time you were in the hospital) a. Were changes made in your medications when you were in the hospital on [date of index hospitalization]? Yes No Not sure Explain: Note: If no or not sure, please skip to question d b. Did you understand the changes? Yes No Explain: c. Were you able to obtain your new medications right away? Yes No n/a SNF only Explain: d. Were you able to take your medications like the doctor wanted you to? Yes No Explain: e. Did the hospital give you an accurate, easy to understand list of medications when you left? Yes No n/a SNF only Explain: Scale of 1-10 how comfortable does patient feel with disease management in outpatient settin Other Services: LOOKING INTO HIRING A PROVIDER TO COOK FOR HER AND HER ( A FRIEND OF HER NEIGHBORS) Employment Status: RETIRED Areas of Concerns: NONE Referral Needs: REFUSES HOME HEALTH CARE Education Needs: F/U APPTS IMM/DORSEY given and signed (if applicable): IMM ON ADMIT Goal for discharge:TO GO HOME SOON POSSIBLE CM/SW left business card at the bedside with contact information. Name and number was also written on the patients whiteboard. Patient verbalized understanding of discussion. CM will follow-up with ongoing discharge and transition of care needs.
--- NOTE | 2018-06-24 19:00 | NUR ---
patient received awake, alert, lying quietly in bed. no c/o pain noted. patient repositioned for comfort. pm assessment complete. family members noted at the bedside. patient instructed to call for assistance when needed.
--- NOTE | 2018-06-24 19:08 | NUR ---
PATIENT IN STABLE CONDITION WITH NO S/S OF RESPIRATORY DISTRESS. NO PAIN VOICED. DIAPER APPLIED. BED ALARM ON. BEDSIDE COMMODE AVAILABLE NEAR BEDSIDE. FAMILY MEMBERS PRESENT IN ROOM. CALL LIGHT IS WITHIN REACH, INSTRUCTED TO CALL FOR ASSISTANCE NEEDED. BEDSIDE REPORT GIVEN TO ONCOMING NURSE.
[2018-06-24] MEDS: CEFTRIAXONE SOD 1 GM/NS 50 ML 50 ML IV SCH (21:00)
[2018-06-24] MEDS ORDERED: SODIUM CHLORIDE 0.9% 250ML 250 ML ONE (21:07)
[2018-06-25] VITALS (7 sets, daily range): BP systolic 108–149; BP diastolic 56–82
--- NOTE | 2018-06-25 | NUR ---
patient oob to bs with assistance. patient voids without difficulty. no c/o pain noted at this time.
[2018-06-25 06:20] LABS: BASOPHILS % 0.2 % (0.0-1.0); EOSINOPHILS # (AUTO) 0.4 (0.0-0.4); EOSINOPHILS % 2.9 % (0.0-6.0); HEMATOCRIT 28.8 % (34.2-44.1); HEMOGLOBIN 9.4 g/dL (12.0-16.0); LYMPHOCYTES # (AUTO) 1.5 (1.0-3.2); LYMPHOCYTES % 10.9 % (18.0-39.1); MEAN CORPUSCULAR HEMOGLOBIN 29.1 pg (28-32); MEAN CORPUSCULAR HGB CONC 32.6 g/dL (31-35); MEAN CORPUSCULAR VOLUME 89.2 fL (81-99); MONOCYTES # (AUTO) 1.1 (0.2-0.8); MONOCYTES % 7.9 % (4.4-11.3); NEUTROPHILS # (AUTO) 10.6 (2.1-6.9); NEUTROPHILS % 76.6 % (38.7-80.0); PLATELET COUNT 188 x10e3/uL (140-360); RED BLOOD COUNT 3.23 x10e6/uL (3.6-5.1); RED CELL DISTRIBUTION WIDTH 14.8 % (11.7-14.4)
[2018-06-25 06:48] LABS: ANION GAP 8.7 mmol/L (8-16); CALCIUM 8.5 mg/dL (8.4-10.2); CREATININE, SERUM 1.13 mg/dL (0.57-1.11); MAGNESIUM 1.9 MG/DL (1.3-2.1); POTASSIUM 3.7 mmol/L (3.5-5.1)
[2018-06-25 15:31] LABS: INR 1.06; PROTHROMBIN TIME 14.3 seconds (11.9-14.5)
--- NOTE | 2018-06-25 16:41 | NUR ---
PATIENT IS SITTING IN THE RECLINER AND IS IN STABLE CONDITION WITH NO S/S OF RESPIRATORY DISTRESS.
[2018-06-25] MEDS: WARFARIN SOD 2 MG TAB PO SCH (17:02)
--- NOTE | 2018-06-25 18:53 | NUR ---
PATIENT ASSISTED BACK TO BED BY AIR TUCKER'S. PATIENT IS IN STABLE CONDITION WITH NO S/S OF RESPIRATORY DISTRESS. NO PAIN VOICED. TELEMETRY APPLIED. BED ALARM ON. CALL LIGHT IS WITHIN REACH, INSTRUCTED TO CALL FOR ASSISTANCE NEEDED. BEDSIDE REPORT GIVEN TO ONCOMING NURSE.
--- NOTE | 2018-06-25 19:15 | NUR ---
patient received awake, alert, lying quietly in bed. respirations even and unlabored. patient denies pain at this time. pm assessment complete. patient instructed to call for assistance when needed.
[2018-06-25] MEDS: CEFTRIAXONE SOD 1 GM/NS 50 ML 50 ML IV SCH (20:48)
[2018-06-26] VITALS: BP 144/63
--- NOTE | 2018-06-26 00:30 | NUR ---
patient oob to [facility] with assistance. patient voids without difficulty. no bm noted at this time. patient complains of insomnia and is requesting medication to help her sleep. Dr. Kapoor notified and medication ordered.
[2018-06-26] MEDS: TEMAZEPAM 15 MG CAP PO PRN (00:41)
[2018-06-26 04:00] VITALS: BP 147/65
[2018-06-26 06:23] LABS: INR 0.98; PROTHROMBIN TIME 13.5 seconds (11.9-14.5)
[2018-06-26 08:00] VITALS: BP 132/83
--- NOTE | 2018-06-26 11:32 | NUR ---
PATIENT FINISHED USING THE BEDSIDE COMMODE (URINE) AND TRANSFERRED TO THE RECLINER PER WALKER AND STANDBY ASSISTANCE BY THE RN. PATIENT IN STABLE CONDITION WITH NO S/S OF RESPIRATORY DISTRESS.
[2018-06-26 12:00] VITALS: BP 143/67
--- NOTE | 2018-06-26 12:35 | NUR ---
DR. WALLY ROCA ON PATIENT, CONTINUE SAME DOSE OF COUMADIN.
[2018-06-26] MEDS: WARFARIN SOD 2 MG TAB PO SCH (17:08)
--- NOTE | 2018-06-26 18:44 | NUR ---
DR. CERRATO INFORMED PATIENT IS POSITIVE FOR OCCULT STOOL- NO NEW ORDERS GIVEN.
--- NOTE | 2018-06-26 18:49 | NUR ---
PATIENT IN STABLE CONDITION WITH NO S/S OF RESPIRATORY DISTRESS. PATIENT SITTING IN THE RECLINER. NO PAIN VOICED. CALL LIGHT IS WITHIN REACH, PATIENT INSTRUCTED TO CALL FOR ASSISTANCE NEEDED. BEDSIDE REPORT GIVEN TO ONCOMING NURSE.
--- NOTE | 2018-06-26 18:50 | NUR ---
patient received awake, alert, sitting up in recliner. no c/o pain noted. pm assessment complete. call vasquez placed within reach and patient instructed to call for assistance when needed.
[2018-06-26 19:30] VITALS: BP 149/88
[2018-06-26 20:00] VITALS: BP 149/88
[2018-06-26] MEDS: CEFTRIAXONE SOD 1 GM/NS 50 ML 50 ML IV SCH (20:33)
[2018-06-27] VITALS (8 sets, daily range): BP systolic 124–161; BP diastolic 58–74
--- NOTE | 2018-06-27 | NUR ---
patient ambulatory to bathroom with assistance. patient voids without difficulty. no c/o pain noted at this time.
--- NOTE | 2018-06-27 04:56 | NUR ---
am labs collected at this time from right ij tlc.
[2018-06-27 06:09] LABS: BASOPHILS % 0.3 % (0.0-1.0); EOSINOPHILS # (AUTO) 0.8 (0.0-0.4); EOSINOPHILS % 5.8 % (0.0-6.0); HEMOGLOBIN 10.2 g/dL (12.0-16.0); LYMPHOCYTES # (AUTO) 1.8 (1.0-3.2); MEAN CORPUSCULAR HEMOGLOBIN 29.5 pg (28-32); MEAN CORPUSCULAR HGB CONC 31.9 g/dL (31-35); MEAN CORPUSCULAR VOLUME 92.5 fL (81-99); MONOCYTES # (AUTO) 1.1 (0.2-0.8); MONOCYTES % 7.8 % (4.4-11.3); NEUTROPHILS # (AUTO) 10.6 (2.1-6.9); NEUTROPHILS % 72.7 % (38.7-80.0); PLATELET COUNT 220 x10e3/uL (140-360); RED BLOOD COUNT 3.46 x10e6/uL (3.6-5.1); RED CELL DISTRIBUTION WIDTH 17.1 % (11.7-14.4)
[2018-06-27 06:31] LABS: INR 1.04; PROTHROMBIN TIME 14.1 seconds (11.9-14.5)
[2018-06-27 06:45] LABS: ALANINE AMINOTRANSFERASE 21 IU/L (0-55); ALBUMIN 2.6 g/dL (3.5-5.0); ALBUMIN/GLOBULIN RATIO 0.9 (0.8-2.0); ALKALINE PHOSPHATASE 67 IU/L (40-150); ANION GAP 10.8 mmol/L (8-16); BLOOD UREA NITROGEN 24 mg/dL (7-26); BUN/CREATININE RATIO 27 (6-25); CALCIUM 8.8 mg/dL (8.4-10.2); CARBON DIOXIDE 28 mmol/L (22-29); CHLORIDE 102 mmol/L (98-107); CREATININE, SERUM 0.88 mg/dL (0.57-1.11); EST GLOMERULAR FILTRATION RATE > 60 ML/MIN (60-); GLUCOSE 94 mg/dL (74-118); POTASSIUM 3.8 mmol/L (3.5-5.1); SODIUM 137 mmol/L (136-145)
--- NOTE | 2018-06-27 07:30 | NUR ---
PT UP IN BED NO DISTRESS NOTED,DENIES PAIN.
--- NOTE | 2018-06-27 08:00 | NUR ---
ASSISTED PT UP TO CHAIR TOLERATED WELL,
--- NOTE | 2018-06-27 08:45 | NUR ---
PT UP AMBULATING IN ROOM ,TELE CALLED STATED PT HR 149 EXPLAINED PT WAS AMBULATING,ASSISTED PT BACK TO BED
--- NOTE | 2018-06-27 09:30 | NUR ---
PT HR 97 AFIB
[2018-06-27] MEDS: WARFARIN SOD 2 MG TAB PO SCH (17:35)
--- NOTE | 2018-06-27 18:35 | NUR ---
PT UP IN CHAIR NO DISTRESS NTOED ,DENNIES PAIN
--- NOTE | 2018-06-27 19:00 | NUR ---
patient received awake, alert, sitting up in recliner in room. no c/o pain noted. Dr. Tian here to see patient. new medication orders noted. pm assessment complete. call vasquez placed within reach. patient instructed to call for assistance when needed.
[2018-06-27] MEDS: FAMOTIDINE 20 MG TAB PO SCH (19:55)
[2018-06-27] MEDS: METOPROLOL SUCCINATE 25 MG TAB XL PO SCH (20:00)
[2018-06-27] MEDS: TEMAZEPAM 15 MG CAP PO PRN (23:45)
--- NOTE | 2018-06-27 23:45 | NUR ---
patient ambulatory to bathroom with walker with assistance. patient voids without difficulty. patient back to recliner to sleep per patients choice. patient medicated with restoril 30 mg po per patients request. call vasquez placed within reach. patient instructed to call for assistance when needed.
[2018-06-28] VITALS (9 sets, daily range): BP systolic 116–136; BP diastolic 55–73
--- NOTE | 2018-06-28 03:25 | Progress Note ---
DATE: SUBJECTIVE: The patient is currently in for Coumadin toxicity, sepsis. The patient is currently asymptomatic, in good spirits, participated physical therapy, walked the floor, did complain of some reflux esophagitis. MEDICATIONS: The patient's medications at this time are Lasix, guaifenesin, metoprolol, which is restarted, temazepam, warfarin at 2 mg, and also benzonatate. PHYSICAL EXAMINATION: VITAL SIGNS: Temperature is 97.7, pulse of 104, respirations 17, blood pressure is 131/60, and pulse oximeter is 96%. HEENT: Normocephalic, atraumatic. Pupils are reactive to light and accommodation. CVS: S1, S2. Regular. Tachycardic. ABDOMEN: Nontender, nondistended. EXTREMITIES: No clubbing. No cyanosis. No edema. SKIN: With ecchymosis from the fall. LABORATORY VALUES: White count is 14,000, hemoglobin of 10.2, and hematocrit of 32. Chemistry; sodium of 137, potassium 3.8, BUN of 24, and creatinine of 0.88. Coags, INR is 1.04. ASSESSMENT: 1. Sepsis. 2. Coumadin toxicity. 3. Anemia of blood loss. 4. Hypertension. 5. Atrial fibrillation with rapid ventricular rate. PLAN: Plan is to continue with current medications. Medicine list reviewed. Labs will be done tomorrow. The patient's Rocephin has been stopped. We will restart her metoprolol ER in lieu of her tachycardia. Continue monitoring the patient. INR should be therapeutic between 2 and 3. Coumadin has been reinstated and also uptitrated today. For her reflux, we will give her cimetidine at nighttime and pantoprazole in the morning. Further recommendation per clinical course. The patient will continue physical therapy. DISPOSITION: Possible discharge in 1-2 days after INR has been therapeutic. MD KRISTA Biswas/MODL /[id number]
--- NOTE | 2018-06-28 05:00 | NUR ---
am labs collected at this time and sent to lab.
[2018-06-28 06:05] LABS: BASOPHILS # (AUTO) 0.1 (0.0-0.1); BASOPHILS % 0.5 % (0.0-1.0); EOSINOPHILS # (AUTO) 0.8 (0.0-0.4); EOSINOPHILS % 6.2 % (0.0-6.0); HEMATOCRIT 31.5 % (34.2-44.1); HEMOGLOBIN 9.9 g/dL (12.0-16.0); LYMPHOCYTES # (AUTO) 1.6 (1.0-3.2); LYMPHOCYTES % 12.3 % (18.0-39.1); MEAN CORPUSCULAR HEMOGLOBIN 29.4 pg (28-32); MEAN CORPUSCULAR HGB CONC 31.4 g/dL (31-35); MEAN CORPUSCULAR VOLUME 93.5 fL (81-99); MONOCYTES # (AUTO) 1.1 (0.2-0.8); MONOCYTES % 8.8 % (4.4-11.3); NEUTROPHILS # (AUTO) 9.2 (2.1-6.9); NEUTROPHILS % 70.7 % (38.7-80.0); PLATELET COUNT 221 x10e3/uL (140-360); RED BLOOD COUNT 3.37 x10e6/uL (3.6-5.1); RED CELL DISTRIBUTION WIDTH 16.8 % (11.7-14.4)
[2018-06-28 06:26] LABS: PROTHROMBIN TIME 13.7 seconds (11.9-14.5)
--- NOTE | 2018-06-28 07:35 | NUR ---
PT UP ON SIDE OF BED ,DENIES PAIN,TELE IN PLACE -AFIB 80
[2018-06-28] MEDS: PANTOPRAZOLE SOD 40 MG TABEC PO SCH (08:35)
[2018-06-28] MEDS: METOPROLOL SUCCINATE 25 MG TAB XL PO SCH (08:35)
--- NOTE | 2018-06-28 13:32 | Progress Note ---
DATE: SUBJECTIVE: The patient is here for acute Coumadin toxicity, hypertension, and history of AFib with RVR and also with blood loss anemia. Currently asymptomatic, did start back on the metoprolol yesterday. OBJECTIVE: VITAL SIGNS: Temperature is 97.9, pulse of 84, respirations of 18, and blood pressure is 133/73. GENERAL: The patient has ecchymosis in the neck and also in the thigh area. HEENT: Normocephalic, atraumatic. CVS: S1 and S2 irregularly irregular. ABDOMEN: Nontender, nondistended. EXTREMITIES: Positive for swelling in the right thigh with edema on the right side. LABORATORY VALUES: Today's white count is down to 12,000. Chemistries, creatinine of 0.88, acute kidney injury has resolved. The patient's lytes are all normal at this time. Coags, INR is 1.00. Warfarin will be increased to 3. ASSESSMENT: 1. Sepsis. 2. Coumadin toxicity. 3. Anemia of blood loss. 4. Hypertension. 5. Atrial fibrillation with rapid ventricular response. PLAN: 1. Sepsis. The patient's antibiotic has been stopped. 2. Atrial fibrillation. Continue with metoprolol, rate has been achieved. 3. Coumadin toxicity, has resolved. The patient has been restarted on her Coumadin with a target rate of between 2 and 3 INR. 4. Physical Therapy for rehabilitation. FURTHER RECOMMENDATIONS AND CLINICAL COURSE: We will continue to monitor the patient. Possible discharge in 1 to 2 days when the INR is therapeutic between 2 and 3. MD KRISTA Biswas/MODL /[id number]
[2018-06-28] MEDS ORDERED: WARFARIN SOD 3 MG TAB PO SCH (17:00)
--- NOTE | 2018-06-28 18:50 | NUR ---
patient received awake, alert, sitting up in recliner. daughter noted at the bedside. pt denies pain at this time. pm assessment complete. patient instructed to call for assistance when needed.
[2018-06-28] MEDS: FAMOTIDINE 20 MG TAB PO SCH (20:34)
[2018-06-28] MEDS: TEMAZEPAM 15 MG CAP PO PRN (21:43)
[2018-06-29] VITALS (7 sets, daily range): BP systolic 108–125; BP diastolic 58–70
[2018-06-29 05:18] LABS: BASOPHILS # (AUTO) 0.1 (0.0-0.1); BASOPHILS % 0.4 % (0.0-1.0); EOSINOPHILS # (AUTO) 0.8 (0.0-0.4); EOSINOPHILS % 5.7 % (0.0-6.0); HEMATOCRIT 32.5 % (34.2-44.1); LYMPHOCYTES # (AUTO) 1.7 (1.0-3.2); LYMPHOCYTES % 12.2 % (18.0-39.1); MEAN CORPUSCULAR HEMOGLOBIN 28.9 pg (28-32); MEAN CORPUSCULAR HGB CONC 30.8 g/dL (31-35); MEAN CORPUSCULAR VOLUME 93.9 fL (81-99); MONOCYTES # (AUTO) 1.4 (0.2-0.8); MONOCYTES % 9.7 % (4.4-11.3); NEUTROPHILS # (AUTO) 9.9 (2.1-6.9); NEUTROPHILS % 70.2 % (38.7-80.0); PLATELET COUNT 207 x10e3/uL (140-360); RED BLOOD COUNT 3.46 x10e6/uL (3.6-5.1); RED CELL DISTRIBUTION WIDTH 16.8 % (11.7-14.4)
[2018-06-29 05:29] LABS: INR 0.98; PROTHROMBIN TIME 13.5 seconds (11.9-14.5)
--- NOTE | 2018-06-29 07:35 | NUR ---
PATIENT OUT OF BED TO RECLINING CHAIR WATCHING TV. DENIED PAIN AT THIS TIME. S/P FALL AT HOME, BRUISES ALL OVER THE BODY. CALL LIGHT AT REACH.
[2018-06-29] MEDS: PANTOPRAZOLE SOD 40 MG TABEC PO SCH (08:04)
[2018-06-29] MEDS: METOPROLOL SUCCINATE 25 MG TAB XL PO SCH (09:40)
--- NOTE | 2018-06-29 10:33 | Progress Note ---
DATE: SUBJECTIVE: The patient is here for Coumadin toxicity, status post fall, left knee hemarthrosis, and also urinary tract infection and sepsis. Currently, the patient is asymptomatic. Awaiting for INR to be elevated to between 2 and 3. The patient did get 3 mg of warfarin yesterday and we will continue monitoring the warfarin. OBJECTIVE: VITAL SIGNS: Temperature is 98.1, pulse of 86, respirations of 16, blood pressure is 125/58, pulse ox of 98%. HEENT: Normocephalic, atraumatic. NECK: With ecchymosis. CVS: S1, S2. Irregular. ABDOMEN: Nontender, nondistended. EXTREMITIES: Right lower extremity with hemarthrosis. Positive edema. Extremities otherwise normal. LABORATORY VALUES: Today's white count is 14,000, hemoglobin of 10, hematocrit of 32. Coags decreased, INR to 0.98. The patient's chemistries are all within normal limits. Bilirubin is 1.6. ASSESSMENT: 1. Sepsis. 2. Coumadin toxicity. 3. Anemia of blood loss. 4. Hypertension. 5. Atrial fibrillation with rapid ventricular response and normal response right now. 6. Debility. PLAN: 1. Continue with checking her CBCs. The patient's white count has steadily dropped and normalized. 2. Atrial fibrillation is controlled with metoprolol. 3. Coumadin toxicity, resolved with vitamin K and FFP. The patient is on Coumadin. We will bump up the warfarin to 5 mg. 4. Debility. Physical therapy with rehabilitation. The patient did walk the course of the hospital 2 times yesterday and improving. Plan is to again monitor the INR, and when INR is between 2 to 3, the patient can be discharged home safely. Further recommendations per clinical course. MD KRISTA Biswas/MODL /[id number]
--- NOTE | 2018-06-29 11:32 | NUR ---
PATIENT IN RECLINING CHAIR TALKING TO FAMILY MEMBER VISITING. CALL LIGHT AT REACH.
--- NOTE | 2018-06-29 13:12 | NUR ---
EXPLAINED THE IMM LETTER. PT AND SPOUSE VERBALIZED UNDERSTANDING. IMM LETTER WAS SIGNED. COPY TO PT AND COPY TO CHART.
--- NOTE | 2018-06-29 16:08 | NUR ---
PATIENT ASSISTED TO THE RESTROOM AND BACK TO CHAIR. CALL LIGHT AT REACH.
--- NOTE | 2018-06-29 16:50 | NUR ---
Nutrition Screen Note RD Recommendation for Physician: -Rec adding vitamin K restriction to cardiac diet as medically appropriate Plan of Care: RD following, monitoring for tolerance and adequacy Nutrition reason for involvement: LOS Primary Diagnose(s): Afib, coumadin toxicity, debility PMH: HTN, HLD, Afib Ht: 65in Wt:196.25lb BMI: 32.7kg/m2 IBW: 125lb RD Assessment: (06/29) Chart reviewed. Labs and meds reviewed. 83yo F, who was admitted for weakness. Visited pt in the room. Pt reported improvement in her appetite with 75-100% meal intake. No GI complains reported. No chewing or swallowing difficulty noted. No recent weight loss reported with UBW at 181lb. Will continue to monitor and follow. Current Diet: cardiac diet Malnutrition Evaluation (06/29) The patient does not meet criteria for a specified degree of malnutrition at this time. Will re-evaluate at follow-up as appropriate. Diet Education Needs Assessment: Diet education not indicated. Nutrition Care Level: low Signed: Fanny Kate, MS, RD, LD
[2018-06-29] MEDS ORDERED: WARFARIN SOD 3 MG TAB PO SCH (17:00)
[2018-06-29] MEDS: WARFARIN SOD 5 MG TAB PO SCH (17:13)
--- NOTE | 2018-06-29 19:42 | NUR ---
PT IS RESTING IN THE RECLINER. RESPIRATION IS EVEN AND UNLABORED, NO DISTRESS NOTED. BED IN THE LOWEST POSITION, LOCKED, AND CALL LIGHT WITHIN REACH. WILL CONTINUE TO MONITOR.
[2018-06-29] MEDS: FAMOTIDINE 20 MG TAB PO SCH (20:44)
[2018-06-29] MEDS: TEMAZEPAM 15 MG CAP PO PRN (21:47)
[2018-06-30] VITALS (8 sets, daily range): BP systolic 93–149; BP diastolic 58–80
[2018-06-30 06:34] LABS: INR 1.11; PROTHROMBIN TIME 14.8 seconds (11.9-14.5)
--- NOTE | 2018-06-30 07:13 | NUR ---
RECEIVED PATIENT RESTING IN BED. RESPIRATIONS EVEN AND UNLABORED, NO ACUTE DISTRESS NOTED. CALL LIGHT WITHIN REACH. BED IN THE LOWEST POSITION.
[2018-06-30] MEDS: METOPROLOL SUCCINATE 25 MG TAB XL PO SCH (08:21)
[2018-06-30] MEDS: PANTOPRAZOLE SOD 40 MG TABEC PO SCH (08:21)
--- NOTE | 2018-06-30 10:34 | Progress Note ---
DATE: SUBJECTIVE: The patient is here for Coumadin toxicity, anemia, blood loss, hypertension, hypercoagulable state. Currently, the patient is asymptomatic. No complaints noted. The patient is awaiting for her INR to be between 2 and 3. The patient did walk yesterday, otherwise getting stronger daily. OBJECTIVE: VITAL SIGNS: Temperature is 97.0, pulse is 66, respirations 16, blood pressure is 117/58. HEENT: Normocephalic, atraumatic. Pupils are reactive to light and accommodation. CVS: S1, S2, irregular. ABDOMEN: Nontender, nondistended. EXTREMITIES: No clubbing, no cyanosis. INTEGUMENTARY: Positive for ecchymosis, fading away. MUSCULOSKELETAL: Right-sided hemarthrosis. LABORATORY VALUES: Today's INR is 1.11. Coumadin is at 5 mg. ASSESSMENT AND PLAN: 1. Acute blood loss anemia, status post blood transfusion, status post FFP. 2. Coumadin toxicity, resolved, back on Coumadin. 3. Atrial fibrillation, continue with warfarin at 5 mg. INR to be monitored daily. 4. Hypertension, controlled and debility needs physical therapy. Further recommendations and clinical course, we will continue to monitor the patient until INR is between 2 and 3 and therapeutic. MD MELINA BiswasJ/MODL /[id number]
[2018-06-30] MEDS: WARFARIN SOD 5 MG TAB PO SCH (17:27)
--- NOTE | 2018-06-30 19:18 | NUR ---
REPORT GIVEN TO ONCOMING NURSE, PATIENT IS RESTING IN RECLINER. NO ACUTE DISTRESS NOTED. FAMILY AT BEDSIDE. CALL LIGHT WITHIN REACH. BED IN THE LOWEST POSITION.
--- NOTE | 2018-06-30 19:51 | NUR ---
PT IS SITTING IN THE RECLINER VISITING WITH FAMILY. RESPIRATION IS EVEN AND UNLABORED, NO DISTRESS NOTED. BED IN THE LOWEST POSITION, LOCKED, AND CALL LIGHT WITHIN REACH. WILL CONTINUE TO MONITOR.
[2018-06-30] MEDS: FAMOTIDINE 20 MG TAB PO SCH (22:01)
[2018-07-01] VITALS (8 sets, daily range): BP systolic 111–140; BP diastolic 52–71
--- NOTE | 2018-07-01 06:58 | NUR ---
RECEIVED PATIENT RESTING IN BED, RESPIRATIONS EVEN AND UNLABORED, NO ACUTE DISTRESS NOTED. CALL LIGHT WITHIN REACH. BED IN THE LOWEST POSITION. BED ALARM ON.
[2018-07-01 07:15] LABS: INR 1.13
[2018-07-01] MEDS: PANTOPRAZOLE SOD 40 MG TABEC PO SCH (08:29)
[2018-07-01] MEDS: METOPROLOL SUCCINATE 25 MG TAB XL PO SCH (08:30)
--- NOTE | 2018-07-01 09:49 | Progress Note ---
DATE: SUBJECTIVE: The patient is asymptomatic. No complaints today. OBJECTIVE: VITAL SIGNS: Temperature is 96.9, blood pressure is 117/52, respiration of 20. HEENT: Normocephalic. Positive for ecchymosis in the neck. CVS: S1, S2. Regular. ABDOMEN: Nontender, nondistended. EXTREMITIES: Right-sided extremity edema with hemarthrosis and decreased swelling compared to yesterday. LABORATORY VALUE: INR is still pending, yesterday was 1.11. The patient is on warfarin 5 mg. ASSESSMENT: 1. Acute blood loss anemia, status post transfusion, status post FFP. 2. Coumadin toxicity, resolved. The patient is currently back on anticoagulation for atrial fibrillation. 3. Hypertension. Continue with antihypertensive. 4. Debility. Continue physical therapy. DISPOSITION: Discharged home when the INR is between 2 and 3. Further recommendation per clinical course. MD MELINA BiswasJ/MODL /[id number]
[2018-07-01] MEDS ORDERED: FUROSEMIDE INJ 10 MG/ML 2 ML VIAL IV ONE (10:30)
[2018-07-01] MEDS: WARFARIN SOD 5 MG TAB PO SCH (17:01)
--- NOTE | 2018-07-01 19:19 | NUR ---
REPORT GIVEN TO ONCOMING NURSE. PATIENT IS SITTING UP IN RECLINER. NO ACUTE DISTRESS NOTED. CALL LIGHT WITHIN REACH.
[2018-07-01] MEDS: FAMOTIDINE 20 MG TAB PO SCH (21:32)
[2018-07-01] MEDS: TEMAZEPAM 15 MG CAP PO PRN (22:33)
[2018-07-02] VITALS (7 sets, daily range): BP systolic 102–125; BP diastolic 56–74
--- NOTE | 2018-07-02 05:10 | NUR ---
Patient brought in from the ER, patient is alert and oriented but sleeps easily. patient welcomed and offered a bed, vitals checked are normal.
[2018-07-02 07:19] LABS: BASOPHILS % 0.3 % (0.0-1.0); EOSINOPHILS # (AUTO) 0.6 (0.0-0.4); EOSINOPHILS % 4.6 % (0.0-6.0); HEMATOCRIT 36.6 % (34.2-44.1); HEMOGLOBIN 11.7 g/dL (12.0-16.0); LYMPHOCYTES % 14.6 % (18.0-39.1); MEAN CORPUSCULAR HEMOGLOBIN 30.2 pg (28-32); MEAN CORPUSCULAR VOLUME 94.6 fL (81-99); MONOCYTES # (AUTO) 0.8 (0.2-0.8); MONOCYTES % 6.3 % (4.4-11.3); NEUTROPHILS # (AUTO) 9.8 (2.1-6.9); NEUTROPHILS % 73.2 % (38.7-80.0); PLATELET COUNT 225 x10e3/uL (140-360); RED BLOOD COUNT 3.87 x10e6/uL (3.6-5.1); RED CELL DISTRIBUTION WIDTH 17.5 % (11.7-14.4)
[2018-07-02 07:29] LABS: INR 1.21; PROTHROMBIN TIME 15.9 seconds (11.9-14.5)
[2018-07-02] MEDS: PANTOPRAZOLE SOD 40 MG TABEC PO SCH (07:30)
[2018-07-02 07:38] LABS: ALBUMIN 2.9 g/dL (3.5-5.0); ALBUMIN/GLOBULIN RATIO 0.9 (0.8-2.0); ANION GAP 9.1 mmol/L (8-16); CALCIUM 9.4 mg/dL (8.4-10.2); CREATININE, SERUM 1.21 mg/dL (0.57-1.11); POTASSIUM 4.1 mmol/L (3.5-5.1)
[2018-07-02] MEDS: METOPROLOL SUCCINATE 25 MG TAB XL PO SCH (08:32)
--- NOTE | 2018-07-02 08:33 | NUR ---
Patient alert and responsive, no resp distress, OOB and ambulated in the room no distress at this time Head: Normocephalic, atraumatic Resp: no distress, [id number]%RA Cardiac: S1, S2 present, Afib but controlled, on Tele monitor and beta luca GI: Positive occult blood from 06/26, attending notified Heme: Hgb improving, s/p PRBCs transfused, on coumadin, INR goal 2-3. Will monitor
--- NOTE | 2018-07-02 08:36 | Progress Note ---
DATE: SUBJECTIVE: The patient is an 83-year-old female status post fall with a history of Coumadin toxicity, stays back secondary to low INR. Currently afebrile. No complaints. No chest pain. No shortness of breath. Tenderness in the right lower extremity exist, but controlled with rest and Tylenol as needed. OBJECTIVE: VITAL SIGNS: Temperature is 99.5, pulse of 78, blood pressure is 102/56, and pulse oximetry of 93%. HEENT: Normocephalic, atraumatic. Pupils are reactive to light and accommodation. CVS: S1, S2 regular. ABDOMEN: Nontender and nondistended. EXTREMITIES: No clubbing. No cyanosis and/or no edema. LABORATORY VALUES: INR today is still pending. Hematology; white count was 13,000, hemoglobin of 11.7 and hematocrit of 36.6. Chemistries are pending. Urine normal. ASSESSMENT: 1. Acute blood loss anemia, status post FFP, status post blood transfusion. 2. Coumadin toxicity better. Restart on Coumadin for atrial fibrillation. 3. Atrial fibrillation. Continue with warfarin and also with beta-blockade. 4. Hypertension. Continue with antihypertensive. 5. Debility. Continue with physical therapy. PLAN: Plan is to discharge home when INR is therapeutic between 2 and 3. Further recommendation per clinical course. MD KRISTA Biswas/MODL /[id number]
--- NOTE | 2018-07-02 08:44 | NUR ---
Orders per Dr. Tian for iron studies and repeat CBC and BMP tomorrow
[2018-07-02 09:09] LABS: % IRON SATURATION 20 % (15-50); IRON 65 ug/dL (50-170); TOTAL IRON BINDING CAPACITY 319 ug/dL (261-478); TRANSFERRIN 228 mg/dL (180-382)
--- NOTE | 2018-07-02 10:15 | NUR ---
Visit made by the Spiritual Care Department Pastoral Visitor, Raoul Powell. PV provided pastoral presence, prayer, hospitality, and supportive listening. Pastoral Visitor informed pt/family of the scope of Neuro Intensivist Physician Services and availability. [employer] Spiritual Care Department O: [phone] Pager: [phone] ([phone] number calling from)
[2018-07-02] MEDS: WARFARIN SOD 5 MG TAB PO SCH (17:34)
--- NOTE | 2018-07-02 20:20 | NUR ---
RECEIVED PT SITTING ON THE RECLINER . RESPIRATION IS EVEN AND UNLABORED, DENIES PAIN AND CALL LIGHT WITHIN REACH. WILL CONTINUE TO MONITOR.
[2018-07-02] MEDS: FAMOTIDINE 20 MG TAB PO SCH (22:25)
[2018-07-02] MEDS: TEMAZEPAM 15 MG CAP PO PRN (22:39)
--- NOTE | 2018-07-02 23:29 | Progress Note ---
DATE: SUBJECTIVE: Ms. Clinton is doing well. No new complaints. She is up and about. REVIEW OF SYSTEMS: HEENT: Negative. PULMONARY: Negative. CARDIAC: Negative. PHYSICAL EXAMINATION: GENERAL: She is currently alert and oriented. VITAL SIGNS: Stable. Afebrile. HEENT: Not icteric. NECK: Supple. CHEST: Clear. COR: S1, S2. No murmurs. ABDOMEN: Soft. IMPRESSION: The patient is stable from Infectious Disease on antibiotic. Continue with the same. MD LISETH Hugo/MODL /[id number]
[2018-07-03] VITALS (7 sets, daily range): BP systolic 121–137; BP diastolic 56–98
--- NOTE | 2018-07-03 06:40 | NUR ---
PT RESTED DURING THE NIGHT ,DENIES PAIN .CALL LIGHT WITH IN REACH .CONTINUE TO MONITOR
--- NOTE | 2018-07-03 07:19 | NUR ---
REPORT GIVEN TO THESENA RANDLE NURSE
[2018-07-03 07:38] LABS: BASOPHILS % 0.3 % (0.0-1.0); EOSINOPHILS # (AUTO) 0.7 (0.0-0.4); EOSINOPHILS % 5.2 % (0.0-6.0); HEMATOCRIT 34.7 % (34.2-44.1); HEMOGLOBIN 10.7 g/dL (12.0-16.0); LYMPHOCYTES # (AUTO) 1.5 (1.0-3.2); LYMPHOCYTES % 11.7 % (18.0-39.1); MEAN CORPUSCULAR HEMOGLOBIN 29.4 pg (28-32); MEAN CORPUSCULAR HGB CONC 30.8 g/dL (31-35); MEAN CORPUSCULAR VOLUME 95.3 fL (81-99); MONOCYTES # (AUTO) 0.9 (0.2-0.8); MONOCYTES % 7.1 % (4.4-11.3); NEUTROPHILS # (AUTO) 9.5 (2.1-6.9); NEUTROPHILS % 74.8 % (38.7-80.0); PLATELET COUNT 222 x10e3/uL (140-360); RED BLOOD COUNT 3.64 x10e6/uL (3.6-5.1); RED CELL DISTRIBUTION WIDTH 17.7 % (11.7-14.4)
--- NOTE | 2018-07-03 08:02 | NUR ---
Patient alert and responsive, received this morning, sitting up on recliner, VSS and denies any pains, noted right LE more swollen with excoriations than left, patient states it itches, rounds by attending and observed site, orders in place for clobatosol, will treat as ordered.
[2018-07-03 08:04] LABS: ANION GAP 10.9 mmol/L (8-16); CALCIUM 9.3 mg/dL (8.4-10.2); CREATININE, SERUM 1.12 mg/dL (0.57-1.11); POTASSIUM 3.9 mmol/L (3.5-5.1)
[2018-07-03] MEDS: PANTOPRAZOLE SOD 40 MG TABEC PO SCH (08:51)
[2018-07-03] MEDS: METOPROLOL SUCCINATE 25 MG TAB XL PO SCH (08:52)
--- NOTE | 2018-07-03 10:46 | Progress Note ---
DATE: SUBJECTIVE: The patient is here status post transfusion, history of acute sepsis and also for coagulopathy and Coumadin toxicity. Currently, afebrile, did complain of some itching in the lower extremity, right-sided more than left where the hemarthrosis is present. OBJECTIVE: VITAL SIGNS: Temperature is 96.6, pulse of 65, respirations of 18, and blood pressure is 136/98. HEENT: Normocephalic and atraumatic. CVS: S1 and S2, irregular. ABDOMEN: Nontender and nondistended. EXTREMITIES: Right lower extremity with hemarthrosis extending all the way to the ankle. Positive for excoriations secondary to itching and pruritic lesions. LABORATORY VALUES: Yesterday's white count was 13.40. Chemistries, creatinine is 1.21. Coag, INR was 1.21. ASSESSMENT: Acute blood loss anemia, status post FFP. Coumadin toxicity, better. Restarted on Coumadin for atrial fibrillation. Hypertension, continue with antihypertensive will need physical therapy. Elevated white count, stable and we will stay off some antibiotics at this time. For the right lower extremity swelling and erythema, continue with therapy and also steroid based cream for the right lower extremity to avoid more excoriations. MD KRISTA Biswas/MODL /[id number]
[2018-07-03] MEDS: CLOBETASOL 0.05% CREAM 45GMS 1 EA/15 GM TUBE TOP SCH ×2 (11:58→17:17)
--- NOTE | 2018-07-03 16:39 | NUR ---
Patient alert and responsive, OOB and ambulating with R/W and, orders in place for INR and CBC and BMP, will monitor, rounds by home advisor/oncologist at this time
[2018-07-03] MEDS: WARFARIN SOD 5 MG TAB PO SCH (17:00)
[2018-07-03 17:15] LABS: INR 1.4; PROTHROMBIN TIME 17.7 seconds (11.9-14.5)
--- NOTE | 2018-07-03 19:23 | Progress Note ---
DATE: SUBJECTIVE: Ms. Clinton is stable. There is no new complaint. REVIEW OF SYSTEMS: HEENT: Negative. PULMONARY: Negative. PHYSICAL EXAMINATION: GENERAL: She is alert, comfortable. VITAL SIGNS: Stable. Afebrile. HEENT: She is not icteric. NECK: Supple. LUNGS: Clear. HEART: S1 and S2, normal. ABDOMEN: Soft. IMPRESSION: 1. Leukocytosis slowly better. 2. Dementia. 3. Anemia. 4. Status post sepsis. From Infectious Disease point of view, stable of antibiotic. Discharge planning per Internal Medicine. MD LISETH Hugo/MODAbby /[id number]
--- NOTE | 2018-07-03 19:44 | NUR ---
Received change of shift report from AM nurse. Walking rounds completed.
[2018-07-03] MEDS: FAMOTIDINE 20 MG TAB PO SCH (21:00)
[2018-07-03] MEDS: TEMAZEPAM 15 MG CAP PO PRN (23:37)
[2018-07-04] VITALS (8 sets, daily range): BP systolic 111–143; BP diastolic 56–71
[2018-07-04 06:32] LABS: BASOPHILS % 0.2 % (0.0-1.0); EOSINOPHILS # (AUTO) 0.7 (0.0-0.4); EOSINOPHILS % 5.3 % (0.0-6.0); HEMATOCRIT 33.3 % (34.2-44.1); HEMOGLOBIN 10.5 g/dL (12.0-16.0); LYMPHOCYTES # (AUTO) 1.4 (1.0-3.2); LYMPHOCYTES % 10.5 % (18.0-39.1); MEAN CORPUSCULAR HEMOGLOBIN 30.3 pg (28-32); MEAN CORPUSCULAR HGB CONC 31.5 g/dL (31-35); MONOCYTES # (AUTO) 0.8 (0.2-0.8); MONOCYTES % 6.3 % (4.4-11.3); NEUTROPHILS # (AUTO) 10.1 (2.1-6.9); NEUTROPHILS % 76.8 % (38.7-80.0); PLATELET COUNT 211 x10e3/uL (140-360); RED BLOOD COUNT 3.47 x10e6/uL (3.6-5.1); RED CELL DISTRIBUTION WIDTH 17.7 % (11.7-14.4)
[2018-07-04 06:40] LABS: INR 1.56; PROTHROMBIN TIME 19.3 seconds (11.9-14.5)
[2018-07-04 06:49] LABS: ANION GAP 10.8 mmol/L (8-16); CALCIUM 8.9 mg/dL (8.4-10.2); CREATININE, SERUM 1.11 mg/dL (0.57-1.11); POTASSIUM 3.8 mmol/L (3.5-5.1)
[2018-07-04] MEDS: PANTOPRAZOLE SOD 40 MG TABEC PO SCH (07:30)
[2018-07-04] MEDS: METOPROLOL SUCCINATE 25 MG TAB XL PO SCH (08:51)
[2018-07-04] MEDS: CLOBETASOL 0.05% CREAM 45GMS 1 EA/15 GM TUBE TOP SCH ×2 (08:51→17:05)
--- NOTE | 2018-07-04 09:34 | Progress Note ---
DATE: SUBJECTIVE: The patient is here for Coumadin toxicity, history of atrial fibrillation, sepsis. The patient is better now. Does complain of excoriation of the lower extremities and also swelling. Did apply some cortisone cream. The excoriations are better and the swelling is still present secondary to hemarthrosis. OBJECTIVE: VITAL SIGNS: Temperature is 96.6, pulse of 71, respirations of 18, blood pressure is 130/64, pulse oximetry of 98%. HEENT: Normocephalic, atraumatic. Pupils are reactive to light and accommodation. CVS: S1, S2, regular. ABDOMEN: Nontender, nondistended. EXTREMITIES: Positive for swelling and erythema of the right lower extremity, better. LABORATORY VALUES: INR is 1.56 today. ASSESSMENT AND PLAN: 1. Acute blood loss anemia, status post FFP and Coumadin toxicity. 2. Coumadin toxicity, better. We started her on Coumadin. 3. Hypertension. Continue with antihypertensive. 4. Atrial fibrillation, back on warfarin. 5. Excoriation, erythema, and hemarthrosis of the right lower extremity. Continue with steroid topically. 6. Sepsis, resolved. No antibiotics at this time. We will continue to monitor the patient along with consultants. Can be discharged when the patient's INR is between 2 and 3. MD KRISTA Biswas/MODL /[id number]
--- NOTE | 2018-07-04 11:46 | NUR ---
Patient alert and responsive, no resp distress, OOB and ambulated hallway, slow steady gait and safety maintained, will monitor.
[2018-07-04] MEDS: WARFARIN SOD 5 MG TAB PO SCH (17:05)
[2018-07-04] MEDS: FAMOTIDINE 20 MG TAB PO SCH (21:20)
[2018-07-04] MEDS: TEMAZEPAM 15 MG CAP PO PRN (21:20)
[2018-07-05] VITALS: BP 138/86
[2018-07-05 04:00] VITALS: BP 111/58
--- NOTE | 2018-07-05 07:18 | NUR ---
pt awake and sitting in chair at bedside, resp even and unlabored at this time no distress noted, pt able to make need known, pt has family member at bedside, call light in reach.
[2018-07-05 07:35] LABS: INR 1.79; PROTHROMBIN TIME 21.4 seconds (11.9-14.5)
[2018-07-05 07:50] VITALS: BP 125/65
[2018-07-05 08:21] VITALS: BP 125/65
[2018-07-05] MEDS: PANTOPRAZOLE SOD 40 MG TABEC PO SCH (09:33)
[2018-07-05] MEDS: METOPROLOL SUCCINATE 25 MG TAB XL PO SCH (09:34)
[2018-07-05] MEDS: CLOBETASOL 0.05% CREAM 45GMS 1 EA/15 GM TUBE TOP SCH (09:34)
--- NOTE | 2018-07-05 10:17 | Progress Note ---
DATE: SUBJECTIVE: The patient is status post Coumadin toxicity, status post fall, status post urine tract infection and sepsis. Currently, asymptomatic. Awaiting INR to be between 2 and 3. Today's, INR is unavailable. The patient is otherwise feeling better, right-sided swelling is better and excoriations in are better. OBJECTIVE: VITAL SIGNS: Temperature is 98.6, pulse of 76, respirations of 18, blood pressure is 111/58, and pulse oximetry of 94%. HEENT: Normocephalic, atraumatic. Pupils are reactive to light and accommodation. CVS: S1, S2 normal. Irregularly irregular. ABDOMEN: Nontender, nondistended. EXTREMITIES: Right side with swelling, with erythema, and also with ecchymosis, and swollen knees. MICROBIOLOGY: No growth in the last 5 days. LABORATORY VALUES: The patient's coags are pending, today the last one was 19.3. PT and INR of 1.56. ASSESSMENT: 1. Acute blood loss anemia, status post FFP, status post transfusion. 2. Coumadin toxicity better. The patient is back on Coumadin for atrial fibrillation. 3. Atrial fibrillation. Continue with warfarin. 4. Hypertension. 5. Hemarthrosis, right lower extremity with excoriation. Continue with steroid and also continue physical therapy. 6. Debility. Continue with physical therapy. The patient can be discharged when INR is between 2 and 3. MD MELINA BiswasJ/MODL /[id number]
[2018-07-05 12:38] VITALS: BP 116/55
--- NOTE | 2018-07-05 13:38 | NUR ---
pt right IJ triple lumen d/c by charge, nurse, Tia, RN, pt lying in bed resp even and unlabored, pt tolerated well, no swelling no redness to site.
--- NOTE | 2018-07-05 14:10 | NUR ---
pt discharged home with her , pt and son were educated on her prescription medications and both verbalized understanding.
== END 2018-07-05 14:14 | disposition home or self-care (01) | DRG 871 ==
LOC: ER 22:02 → ERHOLD 06-23 05:07 → ICU 06-23 05:20 → MED/SURG3 06-24 12:19
PROVIDERS: ADMIT Family Medicine; ATTEND Family Medicine
PROC: 30243N1 Transfusion of Nonautologous Red Blood Cells into Central Vein, Percutaneous Approach (ICD-10-PCS; principal; 2018-06-23)
PROC: 02HV33Z Insertion of Infusion Device into Superior Vena Cava, Percutaneous Approach (ICD-10-PCS; 2018-06-23)
PROC: 30243K1 Transfusion of Nonautologous Frozen Plasma into Central Vein, Percutaneous Approach (ICD-10-PCS; 2018-06-23)
DX: A41.9 Sepsis, unspecified organism (principal); R65.21 Severe sepsis with septic shock; D62 Acute posthemorrhagic anemia; T45.515A Adverse effect of anticoagulants, initial encounter
CPT/HCPCS: 36415; 36556; 70450; 71045; 72125; 73522; 74176; 74470; 76937; 80048; 80053; 81001; 82270; 82550; 82553; 83540; 83605; 83690; 83735; 84443; 84466; 84484; 85014; 85018; 85025; 85610; 86850; 86900; 86920; 87040; 93005; 93306; 93970; 97139; 99284; C1751; J0692; J0696; J1940; J3370; J3430; J3475; J7050; P9016; P9017

== ENCOUNTER 2020-08-20 14:39 | Emergency (ER) | payer MEDICARE ==
[~2020-08-20] VITALS: Ht 165.1 cm; Wt 89.8 kg
[~2020-08-20 14:39] MED LIST changes: +CEPHALEXIN500 MG PO; +MELOXICAM7.5 MG PO; +METOPROLOL SUCC25 MG PO; +MONTELUKAST SOD10 MG PO; +POTASSIUM CHLOR8 ME1 PO; +PREDNISONE20 MG PO; +SULFAMETHOXAZO1 EAC1 PO; +WARFARIN SODIUM5 MG PO
== END 2020-08-20 18:40 | disposition home or self-care (01) ==
LOC: ER 15:36
DX: M25.552 Pain in left hip (principal); W18.30XA Fall on same level, unspecified, initial encounter; Y92.008 Other place in unspecified non-institutional (private) residence as the place of occurrence of the external cause; I48.91 Unspecified atrial fibrillation; M54.9 Dorsalgia, unspecified; G89.29 Other chronic pain
CPT/HCPCS: 70450; 71045; 72125; 99284

== ENCOUNTER 2021-04-18 17:09 | Emergency (ER) | payer MEDICARE ==
[~2021-04-18] VITALS: Ht 162.6 cm; Wt 81.6 kg
[2021-04-18] MEDS ORDERED: SODIUM CHLORIDE 0.9% 250ML 250 ML IV ONE (18:45)
[2021-04-18] MEDS ORDERED: CEFTRIAXONE 1 GM in SODIUM CHLORIDE 0.9% 50ML 50 ML IV ONE (18:45)
[2021-04-18] MEDS ORDERED: CEFTRIAXONE 1 GM VIAL ONE (18:51)
[2021-04-18] MEDS ORDERED: SODIUM CHLORIDE 0.9% 250ML 250 ML ONE (18:51)
[2021-04-18] MEDS ORDERED: CEFDINIR300 MG PO (18:58)
[2021-04-18 20:10] VITALS: BP 147/72
== END 2021-04-18 20:10 | disposition home or self-care (01) ==
LOC: FSED 17:20
DX: R55 Syncope and collapse (principal); N39.0 Urinary tract infection, site not specified; I48.20 Chronic atrial fibrillation, unspecified; K21.9 Gastro-esophageal reflux disease without esophagitis; E03.9 Hypothyroidism, unspecified; M54.9 Dorsalgia, unspecified; G89.29 Other chronic pain; R94.31 Abnormal electrocardiogram [ECG] [EKG]
CPT/HCPCS: 70450; 80053; 81003; 82553; 84484; 85025; 99283; J0696; J7050; 93005

== ENCOUNTER 2021-08-02 12:17 | Emergency (ER) | payer MEDICARE ==
[~2021-08-02] VITALS: Ht 162.6 cm; Wt 80.0 kg
[~2021-08-02 12:17] MED LIST changes: +CEFDINIR300 MG PO
[2021-08-02] MEDS ORDERED: DIGOXIN125 MCG PO (13:11)
[2021-08-02] MEDS ORDERED: OMEPRAZOLE40 MG PO (13:11)
[2021-08-02] MEDS ORDERED: DYRENIUM50 MG PO (13:11)
[2021-08-02] MEDS ORDERED: CALCIUM CARBON500 MG PO (13:11)
[2021-08-02] MEDS ORDERED: FERROUS SULFAT324 MG PO (13:11)
[2021-08-02] MEDS ORDERED: ELIQUIS5 MG PO (13:11)
[2021-08-02] MEDS ORDERED: LEVOTHYROXINE125 MC1 (13:11)
[2021-08-02] MEDS ORDERED: SUPER B MAXI C0.4 MG (13:11)
[2021-08-02] MEDS ORDERED: ULTRAM 50MG50 MG PO (13:11)
[2021-08-02] MEDS ORDERED: BACTRIM DS TAB1 EACH PO (13:17)
[2021-08-02] MEDS ORDERED: CEFTRIAXONE 1 GM VIAL IM ONE (13:30)
== END 2021-08-02 13:36 | disposition home or self-care (01) ==
LOC: FSED 12:30
DX: R10.30 Lower abdominal pain, unspecified (principal); N39.0 Urinary tract infection, site not specified; I48.91 Unspecified atrial fibrillation; E03.9 Hypothyroidism, unspecified; K21.9 Gastro-esophageal reflux disease without esophagitis; M54.9 Dorsalgia, unspecified; G89.29 Other chronic pain
CPT/HCPCS: 81003; 87086; 96372; 99283; J0696

== ENCOUNTER 2021-10-05 09:12 | Emergency (ER) | payer MEDICARE ==
[~2021-10-05] VITALS: Ht 160 cm; Wt 76.2 kg
[~2021-10-05 09:12] MED LIST changes: +BACTRIM DS TAB1 EACH PO; +CALCIUM CARBON500 MG PO; +DIGOXIN125 MCG PO; +DYRENIUM50 MG PO; +ELIQUIS5 MG PO; +FERROUS SULFAT324 MG PO; +LEVOTHYROXINE125 MC1; +OMEPRAZOLE40 MG PO; +SUPER B MAXI C0.4 MG; +ULTRAM 50MG50 MG PO
[2021-10-05] MEDS ORDERED: CEFTRIAXONE 1 GM VIAL IM ONE (10:00)
[2021-10-05] MEDS ORDERED: PROBIOTIC & AC1 EACH PO (10:07)
[2021-10-05] MEDS ORDERED: LEVOFLOXACIN250 MG PO (10:07)
[2021-10-05] MEDS ORDERED: CEFTRIAXONE 1 GM VIAL ONE (10:39)
== END 2021-10-05 11:05 | disposition home or self-care (01) ==
LOC: FSED 09:36
DX: N30.01 Acute cystitis with hematuria (principal); Z88.0 Allergy status to penicillin; Z88.8 Allergy status to other drugs, medicaments and biological substances
CPT/HCPCS: 81003; 99282; J0696

== ENCOUNTER → 2022-02-09 | Outpatient (CLI) | payer MEDICARE ==
[~2022-02-09] MED LIST changes: +DIATRIZOATE MEGL/DIATRIZOA SOD 30 ML BTL PO ONE; +IOPAMIDOL 370 MG/ML 100 ML INFUS..BTL INJ ONE; +LEVOFLOXACIN250 MG PO; +PROBIOTIC & AC1 EACH PO; +SODIUM CHLORIDE 0.9% 500ML 500 ML ONE
[2022-02-09 16:57] LABS: CREATININE, SERUM 1.54 mg/dL (0.57-1.11)
== END ==
LOC: CT 15:34
PROVIDERS: ATTEND Family Medicine
DX: R10.0 Acute abdomen (principal)
CPT/HCPCS: 36415; 74177; 82565; 84520; 96360; J7040; Q9963; Q9967